=== PATIENT | female | born 1990 | race Caucasian/White ===

== ENCOUNTER → 2021-01-31 08:07 | Outpatient (BNVA) | payer SELFPAY | DX: Z76.89 Persons encountering health services in other specified circumstances (principal) ==

== ENCOUNTER → 2022-01-18 07:55 | Outpatient (BNVA) | payer SELFPAY | DX: Z02.83 Encounter for blood-alcohol and blood-drug test (principal) ==

== ENCOUNTER 2022-02-15 21:20 | Emergency (ER) | payer OTHER, SELFPAY ==
--- NOTE | ~2022-02-15 | CT_ITS ---
EXAMINATION: CT head/brain wo IV con CLINICAL INFORMATION: Reason for Exam headache COMPARISON: None. TECHNIQUE: Contiguous axial imaging was performed from the skull base to vertex without intravenous contrast. Sagittal and coronal reformatted images were obtained. This CT examination was performed using dose optimization techniques as appropriate, variously including the following: * Automated exposure control * Adjustment of mA and/or kV according to patient size (this includes techniques or standardized protocols for targeted exams where dose is matched to indication/reason for exam; i.e. extremities or head) Use of iterative reconstruction technique DLP: 729 mGy-cm FINDINGS: No acute osseous or soft tissue abnormality. The mastoid air cells and visualized portions of the paranasal sinuses are well aerated. There is no evidence of acute intracranial hemorrhage or territorial infarction. No abnormal mass effect or midline shift is seen. Rodriguez to white matter differentiation is well preserved. No extra-axial fluid collections are identified. No hydrocephalus. No significant volume loss. There is no abnormal attenuation within the brain parenchyma. CT/CT head/brain wo IV con IMPRESSION: No acute intracranial abnormality including hemorrhage, mass effect, hydrocephalus, or acute territorial edematous infarction.
[2022-02-15 22:25] VITALS: BP 121/73; PULSE 56; RESP 16; TEMP 36.6; O2SAT 100; BMI 28.1
--- NOTE | 2022-02-16 00:52 | ED.HA ---
HPI - Headache General Chief Complaint: General Medical Stated Complaint: ?migraine,neck pain,fever Time Seen by Provider: 02/16/22 00:46 Source: patient Mode of arrival: ambulatory Limitations: no limitations History of Present Illness MD elicited complaint: headache Pertinent past history: migraines Onset (ago): day(s) (3) Onset description: gradually and while at rest Location: right, temporal, occipital and band-like Severity: moderate Quality & Timing: throbbing, constant and progressively worsening Exacerbating factors: movement of head/neck, light and noise Relieving factors: nothing Context: occurred at rest Associated symptoms: nausea and photophobia Treatments prior to arrival: acetaminophen, ibuprofen and migraine medication Related Data Previous Rx's Medication Instructions Recorded bxclanqguv-yntfnoksxlrzc-xqjhqmbg 1 tab PO Q6H PRN pain #20 tabs 02/16/22 50 mg-325 mg-40 mg tablet cyclobenzaprine 10 mg tablet 10 mg PO TID PRN muscle spasm #14 02/16/22 tabs ondansetron 4 mg disintegrating 4 mg PO Q8H PRN nausea and 02/16/22 tablet vomiting #20 tabs Allergies Allergy/AdvReac Type Severity Reaction Status Date / Time birch [BIRCH] Allergy Intermediate UNKNOWN Verified 02/15/22 22:28 cat dander Allergy Intermediate RUNNY NOSE Verified 02/15/22 22:28 pollen extracts [POLLEN] Allergy Intermediate ITCHY EYES Verified 02/15/22 22:28 HORTENSIA TREE Allergy Intermediate UNKNOWN Uncoded 02/25/20 16:15 RAW FRUIT Allergy Intermediate UNKNOWN Uncoded 02/25/20 16:15 Review of Systems Review of Systems: Constitutional : No Fever, No Chills, No Fatigue ENT/Mouth : No sore throat, No Rhinorrhea Eyes: No Eye Pain, No Swelling, No Redness Cardiovascular : No Chest Pain, No SOB, No Dyspnea on Exertion Respiratory : No Cough, No Sputum Gastrointestinal : pos Nausea, No Vomiting, No Diarrhea, No abdominal Pain Genitourinary : No Dysuria, No Urinary Frequency, No Hematuria, Musculoskeletal : No joint pain, No Myalgias, No Joint Swelling, pos neck pain Skin : No Skin Lesions, No rash Neuro : No Weakness, No Numbness, No Dizziness, positive Headache Psych : No Anxiety/Panic, No Depression Heme/Lymph: No Bruising, No Bleeding,No Lymphadenopathy Endocrine : No Polyuria, No Polydipsia All other systems reviewed and are negative [facility] Past Medical History Attestation statement: The following information was validated with the patient. Medical History No pertinent past medical history Social History Social History (Updated 02/16/22 @ 00:55 by Taylor Ingram DO) Patient Tobacco Use Status: Never used Tobacco Advance Directives: No Advance Directives Information Provided: Yes Physical Exam Vital Signs: Vital Signs: Last Vital Signs Temp 97.8 F 02/15/22 22:25 Pulse 56 02/15/22 22:25 Resp 16 02/15/22 22:25 BP 121/73 02/15/22 22:25 Pulse Ox 100 02/15/22 22:25 O2 Del Method 02/15/22 22:25 BMI result Body Mass Index 28.1 Appearance: Alert. Oriented X3. No acute distress. Eyes: Pupils equal, round and reactive to light. ENT: Pharynx normal. normal TMs R side, bilateral maxillary and frontal sinus ttp Neck: Normal inspection. Neck supple. no meningeal signs CVS: Normal heart rate and rhythm. Pulses normal. Respiratory: No respiratory distress. Breath sounds normal. Abdomen: Soft and non-tender. Skin: Skin warm and dry. Normal skin color. Normal skin turgor. Extremities: No lower extremity edema. No calf ttp Neuro: Oriented X 3. No motor deficit. No sensory deficit. Course Course Course Narrative: feels better, stable for DC MDM - Headache MDM Narrative Medical decision making narrative: 31 yo female with no sig PMH here with c/o headache x 3 days with sinus pressure. At this time no fevers, not toxic, normal neuro exam will obtain CT head for sinusitis/mass. IV medications for migraine. Given onset, lack of fevers/no meningeal signs - doubt [employer] infection or SAH. Lab Data Result diagrams: 02/16/22 01:15 02/16/22 01:15 Labs: Lab Results 02/16/22 02/16/22 02/16/22 Range/Units 01:15 01:15 01:15 WBC 4.3 L (4.8-10.8) X10*3/uL RBC 4.04 L (4.20-5.50) X10*6/uL Hgb 12.3 (12.0-16.0) g/dl Hct 37.0 (37.0-47.0) % MCV 91.6 (80.0-98.0) fL MCH 30.4 (27.0-33.0) pg MCHC 33.2 (31.0-35.0) g/dl RDW 12.1 (11.0-16.0) % Plt Count 204 (160-400) X10*3/uL MPV 9.8 (9.4-12.3) fL Immature Gran % (Auto) 0.2 (0.0-0.4) % Neut % (Auto) 43.9 L (45-73) % Lymph % (Auto) 40.8 H (20-40) % [place] % (Auto) 9.8 (2-11) % Eos % (Auto) 4.4 H (0-4) % Baso % (Auto) 0.9 (0-2) % Lymph # (Auto) 1.8 (1.2-4.9) X10*3/uL [place] # (Auto) 0.4 (0.1-1.2) X10*3/uL Eos # (Auto) 0.2 (0.0-0.4) X10*3/uL Baso # (Auto) 0.0 (0.0-0.2) X10*3/uL Abs Immat Gran (auto) 0.01 (0.00-0.03) X10*3/uL Absolute Neuts (auto) 1.9 L (2.0-8.3) x10*3/uL Absolute Nucleated RBC 0.000 (0.0-0.012) X10*3/uL Nucleated RBC % (auto) 0.0 (0.0-0.2) /100WBC Sodium 139 (135-145) mmol/L Potassium 4.4 (3.3-5.1) mmol/L Chloride 105 (96-108) mmol/L Carbon Dioxide 25 (22-29) mmol/L Anion Gap 13 (12-20) BUN 18 H (9-16) mg/dL Creatinine 0.74 (0.5-1.4) mg/dL Estim Creat Clear Calc 118.8 Estimated GFR > 60 Random Glucose 82 (60-115) mg/dL Calcium 8.9 (8.4-10.2) mg/dL Beta HCG, Quant < 2 mIU/mL COVID-19 (DEBORAH) Negative (Negative) COVID-19 Clin Com See Note Discharge Plan Discharge Clinical Impression: Migraine Qualifiers: Migraine type: without aura Status migrainosus presence: without status migrainosus Intractability: not intractable Qualified Code(s): G43.009 - Migraine without aura, not intractable, without status migrainosus Patient Disposition: Home, Self-Care Instructions: Migraine Headache (ED) Additional Instructions: return to ED for any worsening symptoms or concerns COVID negative CT head negative CBC WBC 4.3 - repeat in 1 week with your primary care doctor Prescriptions: New cyclobenzaprine 10 mg tablet 10 mg PO TID PRN (Reason: muscle spasm) Qty: 14 0RF mewzuwiuhv-wqchglgmukezn-kyfs 50-325-40 mg tablet 1 tab PO Q6H PRN (Reason: pain) Qty: 20 0RF ondansetron 4 mg tablet,disintegrating 4 mg PO Q8H PRN (Reason: nausea and vomiting) Qty: 20 0RF Stand Alone Forms: Work/School Release
[2022-02-16 01:21] LABS: MANUAL DIFF FLAG NO
[2022-02-16] MEDS: diphenhydrAMINE HCL 50 MG/ML VIAL 25 MG IVPUSH (01:22)
[2022-02-16] MEDS: Metoclopramide HCl 10 MG/2 ML VIAL IVPUSH (01:22)
[2022-02-16] MEDS: Ketorolac Tromethamine 30 MG/ML VIAL IVPUSH (01:22)
[2022-02-16 01:23] LABS: Basophils Percent Auto 0.9 % (0-2); Eosinophils Absolute Auto 0.2 X10*3/uL (0.0-0.4); Eosinophils Percent Auto 4.4 % (0-4); Hemoglobin 12.3 g/dl (12.0-16.0); Imm Gran Abs Auto 0.01 X10*3/uL (0.00-0.03); Imm Gran Pct Auto 0.2 % (0.0-0.4); Lymphocytes Absolute Auto 1.8 X10*3/uL (1.2-4.9); Lymphocytes Percent Auto 40.8 % (20-40); Mean Corpuscular HGB Conc 33.2 g/dl (31.0-35.0); Mean Corpuscular Hemoglobin 30.4 pg (27.0-33.0); Mean Corpuscular Volume 91.6 fL (80.0-98.0); Mean Platelet Volume 9.8 fL (9.4-12.3); Monocytes Absolute Auto 0.4 X10*3/uL (0.1-1.2); Monocytes Percent Auto 9.8 % (2-11); Neutrophils Absolute Auto 1.9 x10*3/uL (2.0-8.3); Neutrophils Percent Auto 43.9 % (45-73); Platelet Count 204 X10*3/uL (160-400); Red Blood Count 4.04 X10*6/uL (4.20-5.50); Red Cell Distribution Width 12.1 % (11.0-16.0); White Blood Count 4.3 X10*3/uL (4.8-10.8)
[2022-02-16] MEDS: Famotidine/PF 20 MG/2 ML VIAL IVPUSH (01:23)
[2022-02-16] MEDS: 0.9 % Sodium Chloride 1,000 ML 999 ML IV (01:24)
[2022-02-16 01:42] LABS: COVID-19 Test Negative (Negative)
[2022-02-16 01:57] LABS: Anion Gap 13 (12-20); Blood Urea Nitrogen 18 mg/dL (9-16); Calcium 8.9 mg/dL (8.4-10.2); Carbon Dioxide 25 mmol/L (22-29); Chloride 105 mmol/L (96-108); Creatinine Clr Calc Pharmacy 118.8; Estimated Glomerular Filt Rate > 60; Glucose Random 82 mg/dL (60-115); Potassium 4.4 mmol/L (3.3-5.1); Sodium 139 mmol/L (135-145)
[2022-02-16 02:05] LABS: HCG Quantitative < 2 mIU/mL
[2022-02-16 04:10] VITALS: BP 102/59; PULSE 42; RESP 16
--- NOTE | 2022-02-16 04:11 | PC.NURSE ---
pt a&o, no sob or chest pain at this time. no sign of distress. Reviewed discharge instructions with pt. pt verbalized understanding. pt ambulated with a steady gait at discharge.
== END 2022-02-16 04:12 | disposition home or self-care (01) ==
PROVIDERS: Emergency Provider Emergency Medicine; PCP Nurse Practitioner Family
DX: G43.009 Migraine without aura, not intractable, without status migrainosus (principal); Z20.822 Contact with and (suspected) exposure to COVID-19; Z79.899 Other long term (current) drug therapy
CPT/HCPCS: 70450; 80048; 84702; 85025; 87635; 96374; 96375; 99284; J1200; J1885; J2765

== ENCOUNTER 2022-06-27 23:01 | Emergency (ER) | payer OTHER, SELFPAY ==
[2022-06-27 23:02] VITALS: BP 125/76; PULSE 50; RESP 18; TEMP 36.3; O2SAT 99; BMI 28.1
[2022-06-27 23:21] VITALS: BP 119/74; PULSE 48; RESP 16; TEMP 36.6; O2SAT 98
--- NOTE | 2022-06-27 23:23 | ED.HA ---
HPI - Headache General Chief Complaint: Headache Stated Complaint: migraine, cant keep food down Time Seen by Provider: 06/27/22 23:21 History of Present Illness HPI Narrative: Patient with history of migraine headache really get severe headaches last time was seen was 03/[address] scan of the head which was negative comes here for headache since yesterday with light sensitivity and nausea no fever chills no sinus infection Related Data Previous Rx's Medication Instructions Recorded psxaolincp-gsowwsfjvflcy-iframknc 1 tab PO Q6H PRN pain #20 tabs 02/16/22 50 mg-325 mg-40 mg tablet cyclobenzaprine 10 mg tablet 10 mg PO TID PRN muscle spasm #14 02/16/22 tabs ondansetron 4 mg disintegrating 4 mg PO Q8H PRN nausea and 02/16/22 tablet vomiting #20 tabs Allergies Allergy/AdvReac Type Severity Reaction Status Date / Time birch [BIRCH] Allergy Intermediate UNKNOWN Verified 02/15/22 22:28 cat dander Allergy Intermediate RUNNY NOSE Verified 02/15/22 22:28 pollen extracts [POLLEN] Allergy Intermediate ITCHY EYES Verified 02/15/22 22:28 HORTENSIA TREE Allergy Intermediate UNKNOWN Uncoded 02/25/20 16:15 RAW FRUIT Allergy Intermediate UNKNOWN Uncoded 02/25/20 16:15 Review of Systems Review of Systems: Yes all other systems are reviewed and are negative PMFSH Past Medical History Medical History (Updated 06/27/22 @ 23:35 by Antoinette Sheehan MD) Migraine Social History Social History Patient Tobacco Use Status: Never used Tobacco Smoked in Last 30 Days: Yes Use of substances other than those prescribed or required for medical reasons: No Patient : No Physical Exam Vital Signs: Vital Signs: Last Vital Signs Temp 97.9 F 06/27/22 23:21 Pulse 48 L 06/27/22 23:21 Resp 16 06/27/22 23:21 BP 119/74 06/27/22 23:21 Pulse Ox 98 06/27/22 23:21 O2 Del Method 06/27/22 23:21 BMI result Body Mass Index 28.1 Appearance: Alert. Oriented X3. No acute distress. Eyes: PERRLA, No Nystagmus photosensitive ENT: Pharynx normal. Oral Mucosa moist Neck: Normal inspection. Neck supple. CVS: Normal heart rate and rhythm. Pulses normal. Respiratory: No respiratory distress. Equal air entry bilateral, no wheezing/rales/rhonchi Abdomen: Soft and nontender. Bowel sounds are present, no mass palpable, no CVA tenderness Skin: Skin warm and dry. Normal skin color. Normal skin turgor. Extremities: No lower extremity edema. No calf tenderness Neuro: Oriented X 3. No motor deficit. No sensory deficit.No cerebellar signs , cranial nerves II-XII intact Discharge Plan Discharge Prescriptions: No Action cyclobenzaprine 10 mg tablet 10 mg PO TID PRN (Reason: muscle spasm) Qty: 14 0RF fxfkmeyquw-iswzdqupzlncn-odjh 50-325-40 mg tablet 1 tab PO Q6H PRN (Reason: pain) Qty: 20 0RF ondansetron 4 mg tablet,disintegrating 4 mg PO Q8H PRN (Reason: nausea and vomiting) Qty: 20 0RF
--- NOTE | 2022-06-27 23:32 | ED_ITS ---
HPI - Headache General Chief Complaint: Headache Stated Complaint: migraine, cant keep food down Time Seen by Provider: 06/27/22 23:21 Source: patient Mode of arrival: ambulatory Limitations: no limitations History of Present Illness HPI Narrative: Patient comes to the emergency room complaining of a migraine headache. Patient has been diagnosed with migraines in the past. Patient states that this morning she woke up with right-sided. Patient complaining of nausea vomiting, no diarrhea. Also patient reports that she has had a URI for several days. Patient tried several doses of Excedrin, ibuprofen and Tylenol without any significant relief. Patient complaining of photophobia. Patient denies any visual changes Related Data Previous Rx's Medication Instructions Recorded aucpgnreky-nratpkcwnibcf-clospddn 1 tab PO Q6H PRN pain #20 tabs 02/16/22 50 mg-325 mg-40 mg tablet cyclobenzaprine 10 mg tablet 10 mg PO TID PRN muscle spasm #14 02/16/22 tabs ondansetron 4 mg disintegrating 4 mg PO Q8H PRN nausea and 02/16/22 tablet vomiting #20 tabs qewdgjdffc-zexagdhdnouqo-yiplkbab 1 cap PO TID PRN pain #10 caps 06/28/22 50 mg-300 mg-40 mg capsule (Fioricet) metoclopramide HCl 5 mg tablet 5 mg PO TID PRN nausea and 06/28/22 (Reglan) vomiting #10 tabs Allergies Allergy/AdvReac Type Severity Reaction Status Date / Time birch [BIRCH] Allergy Intermediate UNKNOWN Verified 02/15/22 22:28 cat dander Allergy Intermediate RUNNY NOSE Verified 02/15/22 22:28 pollen extracts [POLLEN] Allergy Intermediate ITCHY EYES Verified 02/15/22 22:28 HORTENSIA TREE Allergy Intermediate UNKNOWN Uncoded 02/25/20 16:15 RAW FRUIT Allergy Intermediate UNKNOWN Uncoded 02/25/20 16:15 Review of Systems Review of Systems: Constitutional : No Weight loss, No Fever, No Chills, No Night Sweats, No Fatigue, No Malaise ENT/Mouth : No Hearing loss, No Ear Pain, No Nasal Congestion, No Sinus Pain, No Hoarseness, No sore throat, No Rhinorrhea, No Swallowing Difficulty Eyes: Complaining of photophobia, No Eye Pain, No Swelling, No Redness, No Foreign Body, No Discharge, No Vision Changes Cardiovascular : No Chest Pain, No SOB, No Dyspnea on Exertion, No Orthopnea, No Edema, No Palpitations Respiratory : No Cough, No Sputum, No Wheezing, No Smoke Exposure, No Dyspnea Gastrointestinal : Complaining of nausea vomiting, No Diarrhea, No Constipation, No abdominal Pain, No Hematochezia, No Melena Genitourinary : no irregular bleeding, No Dysuria, No Urinary Frequency, No Hematuria, No Urinary Incontinence, No Urgency, No Flank Pain, No Urinary Flow Changes, No Hesitancy Musculoskeletal : No joint pain, No Myalgias, No Joint Swelling Skin : No Skin Lesions, No rash Neuro : No Weakness, No Numbness, No Paresthesias, No Loss of Consciousness, No Dizziness, complaining of a migraine headache Psych : No Anxiety/Panic, No Depression, No SI/HI/AH/VH, No Social Issues, Heme/Lymph: No Bruising, No Bleeding,No Lymphadenopathy Endocrine : No Polyuria, No Polydipsia, No Temperature Intolerance PMFSH Past Medical History Medical History (Updated 06/28/22 @ 01:38 by Antoinette Sheehan MD) Migraine Social History Social History Patient Tobacco Use Status: Never used Tobacco Smoked in Last 30 Days: Yes Use of substances other than those prescribed or required for medical reasons: No Advance Directives: No Advance Directives Information Provided: Yes Patient : No Physical Exam Vital Signs: Vital Signs: Last Vital Signs Temp 97.7 F 06/28/22 00:00 Pulse 40 L 06/28/22 00:00 Resp 16 06/28/22 00:00 BP 119/74 06/27/22 23:21 Pulse Ox 99 06/28/22 00:00 O2 Del Method 06/28/22 00:00 BMI result Body Mass Index 28.1 Const: Other: Appearance: Alert. Oriented X3. No acute distress. Eyes: Pupils equal, round and reactive to light. Patient has photophobia ENT: Pharynx normal. Neck: Normal inspection. Neck supple. No lymph nodes noted. No crepitus CVS: Normal heart rate and rhythm. Pulses normal. Normal S1 and S2 Respiratory: No respiratory distress. Breath sounds normal. No Wheezing. No rales Abdomen: Soft and nontender. No rigidity. No distention. Skin: Skin warm and dry. Normal skin color. Normal skin turgor. Extremities: No lower extremity edema. No Lacerations. No Rash Neuro: Oriented X 3. No motor deficit. No sensory deficit. Moving all extremities. No slurred speech. CN 2 through 12 grossly intact Psych: calm, cooperative, normal affect Course Course Course Narrative: -patient receiving IV fluids, Benadryl IV, Toradol and Reglan. -Serology tests pending Medications Administered Discontinued Medications Generic Name Dose Route Start Last Admin Trade Name Tee PRN Reason Stop Dose Admin Diphenhydramine HCl 50 mg 06/27/22 23:25 06/27/22 23:46 Diphenhydramine Hcl 50 Mg/Ml Vial IVPUSH 06/27/22 23:26 50 mg ONCE ONE Administration Sodium Chloride 1,000 mls @ 999 mls/hr 06/27/22 23:25 06/27/22 23:46 Ns IVCONT 06/28/22 00:25 999 mls/hr .Q1H1M ONE Administration Ketorolac Tromethamine 30 mg 06/27/22 23:25 06/27/22 23:46 Ketorolac Tromethamine 30 Mg/Ml Vial IVPUSH 06/27/22 23:26 30 mg ONCE ONE Administration Metoclopramide HCl 10 mg 06/27/22 23:25 06/27/22 23:47 Metoclopramide Hcl 10 Mg/2 Ml Vial IVPUSH 06/27/22 23:26 10 mg ONCE ONE Administration Medical Decision Making Medical Decision Making [facility] Narrative: -patient feeling much better after the cocktail, states that she has residual headache but feels much better, no longer nauseous or having photophobia. Patient feels well to go home. -discussed with the patient she tested positive for RSV, patient has no difficulty breathing, oxygen saturation 99% on room air. Discussed with the patient to use caution and masks especially around younger kids and elderly people Differential Diagnosis Differential Diagnoses: The differential diagnosis associated with the presentation includes (Tension headache migraine headache, RSV, influenza, viral syndrome) Lab Data [facility] Lab Attestation statement: I reviewed the patient's lab results. Labs: Lab Results 06/27/22 06/27/22 Range/Units 23:11 23:11 Influenza Type A (PCR) NEGATIVE (Negative) Influenza Type B (PCR) NEGATIVE (Negative) RSV RNA Qual (PCR) POSITIVE A (Negative) SARS-CoV-2 RNA (RT-PCR) NEGATIVE (Negative) S. pyogenes GrpA EVONNE Negative (Negative) Discharge Plan Discharge Clinical Impression: Migraine, Bronchiolitis Patient Disposition: Home, Self-Care Instructions: Respiratory Syncytial Virus (ED), Migraine Headache (ED) Additional Instructions: Please follow-up with your primary care physician tomorrow. If you have any worsening or new symptoms, please return to the emergency room or call 911 Prescriptions: New cppmirrgne-eqpixllmmviwn-lbwk [Fioricet] 50-300-40 mg capsule 1 cap PO TID PRN (Reason: pain) Qty: 10 0RF metoclopramide HCl [Reglan] 5 mg tablet 5 mg PO TID PRN (Reason: nausea and vomiting) Qty: 10 0RF Rx Instructions: Take together with Fioricet p.r.n. migraine headaches No Action cyclobenzaprine 10 mg tablet 10 mg PO TID PRN (Reason: muscle spasm) Qty: 14 0RF bfuzypnfcx-rnytwraonvdyj-wldv 50-325-40 mg tablet 1 tab PO Q6H PRN (Reason: pain) Qty: 20 0RF ondansetron 4 mg tablet,disintegrating 4 mg PO Q8H PRN (Reason: nausea and vomiting) Qty: 20 0RF
[2022-06-27 23:36] LABS: IDNOW Serial# 6674DD1D; Strep A Nucleic Acid Negative (Negative)
[2022-06-27] MEDS: Ketorolac Tromethamine 30 MG/ML VIAL IVPUSH (23:46)
[2022-06-27] MEDS: diphenhydrAMINE HCL 50 MG/ML VIAL IVPUSH (23:46)
[2022-06-27] MEDS: 0.9 % Sodium Chloride 1,000 ML 999 ML IVCONT (23:46)
[2022-06-27] MEDS: Metoclopramide HCl 10 MG/2 ML VIAL IVPUSH (23:47)
[2022-06-27 23:58] LABS: Influenza A PCR NEGATIVE (Negative); Influenza B PCR NEGATIVE (Negative); Resp Syncy Virus RNA Qual PCR POSITIVE (Negative); SARS COV2 PCR INHOUSE NEGATIVE (Negative)
[2022-06-28] VITALS: PULSE 40; RESP 16; TEMP 36.5; O2SAT 99
== END 2022-06-28 01:57 | disposition home or self-care (01) ==
PROVIDERS: Emergency Provider Emergency Medicine; PCP Nurse Practitioner Family
DX: G43.909 Migraine, unspecified, not intractable, without status migrainosus (principal); J21.9 Acute bronchiolitis, unspecified; Z20.822 Contact with and (suspected) exposure to COVID-19; Z20.828 Contact with and (suspected) exposure to other viral communicable diseases
CPT/HCPCS: 0241U; 87651; 96374; 96375; 99284; 99285; J1200; J1885; J2765

== ENCOUNTER 2023-12-22 05:02 | Emergency (ER) | payer OTHER, SELFPAY ==
[2023-12-22 05:07] VITALS: BP 116/66; PULSE 66; RESP 16; TEMP 36.6; O2SAT 100; BMI 29.8
--- NOTE | 2023-12-22 05:20 | ED_ITS ---
HPI - Allergic Reaction General Chief complaint: Allergic Reaction Stated complaint: hives, possible allergic reaction Time Seen by Provider: 12/22/23 05:16 Source: patient Mode of arrival: ambulatory Limitations: no limitations History of Present Illness ED Provider: Dr. Antoinette Sheehan HPI narrative: Patient comes to the emergency room complaining of an allergic reaction. Patient states that yesterday morning, almost 24 hours ago she was peeling potatoes. Shortly after, patient started feeling itchy around her body and developing hives. Patient took Benadryl 50 mg without any relief. Patient states that throughout the last 24 hours, patient has taken multiple doses of Benadryl without any relief. Patient denies any foreign body sensation in the throat, states she feels a bit short of breath but not wheezing. Denies nausea vomiting diarrhea. Patient states that the hives are now getting worse around her eyes, her eyes are becoming swollen, and she is itching throughout. Patient states that she believes she is allergic to raw fruits and vegetables Related Data Previous Rx's ?Medication ?Instructions ?Recorded dzeetyghpf-tmtpawpvhwxmk-tmdmoxgo 1 tab PO Q6H PRN pain #20 tabs 02/16/22 50 mg-325 mg-40 mg tablet cyclobenzaprine 10 mg tablet 10 mg PO TID PRN muscle spasm #14 02/16/22 tabs ondansetron 4 mg disintegrating 4 mg PO Q8H PRN nausea and 02/16/22 tablet vomiting #20 tabs wcqjeidwex-ddrytawyctsyl-sqpnyqpq 1 cap PO TID PRN pain #10 caps 06/28/22 50 mg-300 mg-40 mg capsule (Fioricet) metoclopramide HCl 5 mg tablet 5 mg PO TID PRN nausea and 06/28/22 (Reglan) vomiting #10 tabs epinephrine 0.3 mg/0.3 mL 0.3 mg (0.3 mL) IM Q4H PRN 12/22/23 injection, auto-injector (EpiPen) hypersensitivity reaction #2 ea Allergies Allergy/AdvReac Type Severity Reaction Status Date / Time birch [BIRCH] Allergy Intermediate UNKNOWN Verified 02/15/22 22:28 cat dander Allergy Intermediate RUNNY NOSE Verified 02/15/22 22:28 pollen extracts [POLLEN] Allergy Intermediate ITCHY EYES Verified 02/15/22 22:28 Penicillins Allergy Hives Verified 12/22/23 05:13 HORTENSIA TREE Allergy Intermediate UNKNOWN Uncoded 02/25/20 16:15 RAW FRUIT Allergy Intermediate UNKNOWN Uncoded 02/25/20 16:15 Review of Systems Review of Systems: Constitutional : No Weight loss, No Fever, No Chills, No Night Sweats, No Fatigue, No Malaise ENT/Mouth : No Hearing loss, No Ear Pain, No Nasal Congestion, No Sinus Pain, No Hoarseness, No sore throat, No Rhinorrhea, No Swallowing Difficulty Eyes: No Eye Pain, No Swelling, No Redness, No Foreign Body, No Discharge, No Vision Changes Cardiovascular : No Chest Pain, No SOB, No Dyspnea on Exertion, No Orthopnea, No Edema, No Palpitations Respiratory : No Cough, No Sputum, No Wheezing, No Smoke Exposure, No Dyspnea Gastrointestinal : No Nausea, No Vomiting, No Diarrhea, No Constipation, No abdominal Pain, No Hematochezia, No Melena Genitourinary : no irregular bleeding, No Dysuria, No Urinary Frequency, No Hematuria, No Urinary Incontinence, No Urgency, No Flank Pain, No Urinary Flow Changes, No Hesitancy Musculoskeletal : No joint pain, No Myalgias, No Joint Swelling Skin : Diffuse hives and itchiness Neuro : No Weakness, No Numbness, No Paresthesias, No Loss of Consciousness, No Dizziness, No Headache Psych : No Anxiety/Panic, No Depression, No SI/HI/AH/VH, No Social Issues, Heme/Lymph: No Bruising, No Bleeding,No Lymphadenopathy Endocrine : No Polyuria, No Polydipsia, No Temperature Intolerance PMFSH Past Medical History Medical History Migraine Social History Social History Alcohol intake: current Alcohol intake frequency: holidays/special occasions only Patient Tobacco Use Status: Never used Tobacco Smoked in Last 30 Days: No Use of substances other than those prescribed or required for medical reasons: No Advance Directives: No Advance Directives Information Provided: No Do you have a plan to hurt others: No Plan Patient : No Physical Exam ED Vital Signs: Vital Signs - 24 hr 12/22/23 05:07 12/22/23 05:50 Temperature 97.8 F 98.2 F Pulse Rate 66 50 Respiratory Rate 16 16 Blood Pressure 116/66 105/59 L Pulse Oximetry 100 100 Oxygen Delivery Method Room Air Room Air BMI result Body Mass Index 29.8 Const Other: Appearance: Alert. Oriented X3. No acute distress. Eyes: Pupils equal, round and reactive to light. ENT: Pharynx normal. No angioedema Neck: Normal inspection. Neck supple. No lymph nodes noted. No crepitus CVS: Normal heart rate and rhythm. Pulses normal. Normal S1 and S2 Respiratory: No respiratory distress. Breath sounds normal. No Wheezing. No rales Abdomen: Soft and nontender. No rigidity. No distention. Skin: Skin warm and dry. Normal skin color. Normal skin turgor. Diffuse hives head to toe Extremities: No lower extremity edema. No Lacerations. No Rash Neuro: Oriented X 3. No motor deficit. No sensory deficit. Moving all extremities. No slurred speech. CN 2 through 12 grossly intact Psych: calm, cooperative, normal affect Course Course Course Narrative: Patient receiving IV fluids, diphenhydramine famotidine and methylprednisolone -vitals are stable Medications Administered Discontinued Medications Generic Name Dose Route Start Last Admin Trade Name Freq PRN Reason Stop Dose Admin Diphenhydramine HCl 50 mg 12/22/23 05:19 12/22/23 05:46 Diphenhydramine Hcl 50 Mg/Ml Vial IVPUSH 12/22/23 05:20 50 mg ONCE ONE Administration Famotidine 20 mg 12/22/23 05:19 12/22/23 05:46 Famotidine/Pf 20 Mg/2 Ml Vial IVPUSH 12/22/23 05:20 20 mg ONCE ONE Administration Sodium Chloride 1,000 mls @ 999 mls/hr 12/22/23 05:19 12/22/23 05:46 Ns IVCONT 12/22/23 06:19 999 mls/hr .Q1H1M ONE Administration Methylprednisolone Sodium Succinate 125 mg 12/22/23 05:19 12/22/23 05:46 Methylprednisolone Sod Succ 125 Mg/2 Ml Vial IVPUSH 12/22/23 05:20 125 mg ONCE ONE Administration Medical Decision Making Medical Decision Making [facility] Narrative: -after the above-mentioned medication, patient feeling much better, patient states that she still has a little bit of itching but is mostly resolved. -patient will be getting a 2nd dose of Solu-Medrol. -patient instructed to follow-up with her primary care physician. Patient may need a referral to immunology for a skin scratched test And give signed out to my colleague ESTEPHANIA Patel, once patient's symptoms improved, she may be discharged. An Differential Diagnosis Differential Diagnoses: The differential diagnosis associated with the presentation includes (Allergic reaction, anaphylaxis) Admission/Observation Consideration of admission/observation: Escalation of care including admission/observation considered (Given patient's presentation and duration of symptoms, observation considered) Critical Care Time Critical Care Time Critical Care Time: Yes Total Critical Care Time: 60 Attestation: I have personally provided critical care time. Time includes review of lab data, radiology results, discussion with consultants, and monitoring for potential decompensation. Intervention performed as documented. Discharge Plan Discharge Clinical Impression: Allergic reaction Patient Disposition: Home, Self-Care Instructions: General Allergic Reaction (ED) Additional Instructions: Please follow-up with your primary care physician tomorrow. If you have any worsening or new symptoms, please return to the emergency room or call 911. A prescription for an EpiPen was sent to your pharmacy. Please ask your pharmacy to show how to use it. Please do not wait for an emergency to try to figure out how to use it. Epinephrine is meant to be used in severe allergic reactions such as your throat closing. Rash/hives is not an indication to use an EpiPen. If you ever use your EpiPen, you need to come to the emergency room for evaluation Prescriptions: New epinephrine [EpiPen] 0.3 mg/0.3 mL auto-injector 0.3 mg IM Q4H PRN (Reason: hypersensitivity reaction) Qty: 2 0RF No Action maytbprtuq-xkbpfjhseivbu-gwwo [Fioricet] 50-300-40 mg capsule 1 cap PO TID PRN (Reason: pain) Qty: 10 0RF metoclopramide HCl [Reglan] 5 mg tablet 5 mg PO TID PRN (Reason: nausea and vomiting) Qty: 10 0RF Rx Instructions: Take together with Fioricet p.r.n. migraine headaches cyclobenzaprine 10 mg tablet 10 mg PO TID PRN (Reason: muscle spasm) Qty: 14 0RF iitqxnoetb-boaotiktcuugp-ojoi 50-325-40 mg tablet 1 tab PO Q6H PRN (Reason: pain) Qty: 20 0RF ondansetron 4 mg tablet,disintegrating 4 mg PO Q8H PRN (Reason: nausea and vomiting) Qty: 20 0RF Print Language: St Helen[place]
[2023-12-22] MEDS: 0.9 % Sodium Chloride 1,000 ML 999 ML IVCONT (05:46)
[2023-12-22] MEDS: methylPREDNISolone Sod Succ 125 MG/2 ML VIAL IVPUSH ×2 (05:46→07:00)
[2023-12-22] MEDS: Famotidine/PF 20 MG/2 ML VIAL IVPUSH (05:46)
[2023-12-22] MEDS: diphenhydrAMINE HCL 50 MG/ML VIAL IVPUSH (05:46)
[2023-12-22 05:50] VITALS: BP 105/59; PULSE 50; RESP 16; TEMP 36.8; O2SAT 100
--- NOTE | 2023-12-22 07:11 | PC.NURSE ---
Resumed care of pt at 0700. Solumedrol administered per AUG, pt a/ox4, respirations even and unlabored, lung sounds cta bilaterally, s1 and s2 heard, abdomen soft and non-tender, call sadler within reach, pt aware of ongoing plan.
[2023-12-22 07:43] VITALS: BP 111/70; PULSE 68; RESP 18; TEMP 36.6; O2SAT 98
== END 2023-12-22 07:44 | disposition home or self-care (01) ==
PROVIDERS: Emergency Provider Emergency Medicine; PCP Nurse Practitioner Family
DX: L50.0 Allergic urticaria (principal); R11.2 Nausea with vomiting, unspecified; Z79.899 Other long term (current) drug therapy
CPT/HCPCS: 96360; 96374; 96375; 96376; 99284; J1200; J2919

== ENCOUNTER 2024-01-18 12:24 | Emergency (ER) | payer OTHER, SELFPAY ==
--- NOTE | 2024-01-18 12:24 | ED.GENADULT ---
HPI - General Adult General Chief complaint: Allergic Reaction Stated complaint: Allergic reaction Time Seen by Provider: 01/18/24 12:40 Source: patient Mode of arrival: ambulatory Limitations: no limitations History of Present Illness HPI narrative: Patient is a 33-year-old female who presents emergency department with concern for persistent allergic reaction. She reports approximately 1 month ago she was seen in the emergency department for an allergic reaction after peeling potatoes. She believes that she is allergic to raw fruits and vegetables. She was treated with IV medications and discharged home with a prescription for an EpiPen. She states that a couple of weeks ago she consumes some [place] fries, she thought this would not be problematic as they were fried, however she developed arm swelling to her mouth, a throat closing sensation in itching to the front of her neck for which she gave herself her EpiPen and her symptoms began improving. She did not seek evaluation after use of her EpiPen initially. She states that 3 days ago she was at home when someone brought a bag of potato chips into the home and opens them, she reports that her eyes began to swell and she again had a throat closing sensation, states it was not as bad as the reaction when she consumed the [place] fries however she did administer her EpiPen and noticed some improvement in her symptoms. Since then she continues to get swelling of her eyes, itching sensation to the front of her neck for which she has been taking Benadryl and Zyrtec. It does improve her symptoms but they then return. She only just yesterday sent a message to her primary care doctor through the portal to request a referral to an process improvement manager. She denies any other known new allergies or potential environmental contacts. Related Data Previous Rx's ?Medication ?Instructions ?Recorded luexlxljue-wkwclzqjeppfg-fkxqbujx 1 tab PO Q6H PRN pain #20 tabs 02/16/22 50 mg-325 mg-40 mg tablet cyclobenzaprine 10 mg tablet 10 mg PO TID PRN muscle spasm #14 02/16/22 tabs ondansetron 4 mg disintegrating 4 mg PO Q8H PRN nausea and 02/16/22 tablet vomiting #20 tabs jjdwansqwq-bhworbimhdqmp-qyebfnyk 1 cap PO TID PRN pain #10 caps 06/28/22 50 mg-300 mg-40 mg capsule (Fioricet) metoclopramide HCl 5 mg tablet 5 mg PO TID PRN nausea and 06/28/22 (Reglan) vomiting #10 tabs epinephrine 0.3 mg/0.3 mL 0.3 mg (0.3 mL) IM Q4H PRN 12/22/23 injection, auto-injector (EpiPen) hypersensitivity reaction #2 ea epinephrine 0.3 mg/0.3 mL 0.3 mg (0.3 mL) IM Q4H PRN 01/18/24 injection, auto-injector (EpiPen anaphylaxis #2 ea 2-Melvin) Allergies Allergy/AdvReac Type Severity Reaction Status Date / Time birch [BIRCH] Allergy Intermediate UNKNOWN Verified 01/18/24 12:30 cat dander Allergy Intermediate RUNNY NOSE Verified 01/18/24 12:30 pollen extracts [POLLEN] Allergy Intermediate ITCHY EYES Verified 01/18/24 12:30 Penicillins Allergy Hives Verified 01/18/24 12:30 potato Allergy Facial Verified 01/18/24 12:30 Swelling HORTENSIA TREE Allergy Intermediate UNKNOWN Uncoded 02/25/20 16:15 RAW FRUIT Allergy Intermediate UNKNOWN Uncoded 02/25/20 16:15 Review of Systems Review of Systems: Yes all other systems are reviewed and are negative [facility] Past Medical History Attestation statement: The following information was validated with the patient. Source: old records reviewed Medical History Migraine Social History Social History Alcohol intake: current Alcohol intake frequency: holidays/special occasions only Patient Tobacco Use Status: Never used Tobacco Advance Directives: No Advance Directives Information Provided: No Physical Exam ED Vital Signs: Vital Signs - 24 hr 01/18/24 12:25 01/18/24 13:14 Temperature 96.8 F 96.8 F Pulse Rate 65 65 Respiratory Rate 16 16 Blood Pressure 105/72 105/72 Pulse Oximetry 98 98 Oxygen Delivery Method Room Air Room Air BMI result Body Mass Index 29.8 Appearance: Alert.?Oriented to person, place and time. No acute distress.?Normal affect. Eyes: Pupils equal, round and reactive to light.? No periorbital edema. EOMI. ENT: Pharynx normal.??No erythema. No angioedema. Neck: Normal inspection.? Neck supple.? No cervical adenopathy. Skin to the anterior neck is erythematous but without obvious urticaria, superficial linear abrasions consistent with scratch lugo ? CVS: Heart sounds normal. Normal heart rate and rhythm.? Pulses normal.?? Respiratory: No respiratory distress.? Lung sounds clear to auscultation bilaterally?? Abdomen: Soft and non-tender. Normoactive bowel sounds. Skin: Skin warm and dry.? Normal skin color.? ?? Extremities: No lower extremity edema.? Neuro: Moves all extremities spontaneously. Sensation intact bilaterally. Ambulates with normal steady gait. Course Course Course Narrative: This is a rapid medical exam performed by Homer Jones NP: Additional HPI, ROS, PE not included below will be deferred to primary provider. Patient is a 33-year-old female presenting to the emergency department with complaint of recently diagnosed potato allergy. Has used Epi-pen twice this week. Denies shortness of breath but reports hives and dry skin, eye swelling. Lungs CTU, no angioedema, no uvula edema. Reports hives but none visible in triage. Has been taking Benadryl. Has not seen an process improvement manager, prescribed Epi-Pen by PCP. Medical Decision Making Medical Decision Making MDM Narrative: Patient is a 33-year-old female who presents to the emergency department with expressed concern for continued allergic reaction as per HPI. Her most recent reactions have occurred after exposure to some form of potato though not raw this time around they were fried/baked. Currently she appears well. She is nontoxic. She has no respiratory distress. No urticaria. No periorbital edema. No signs of angioedema. No wheezing. She has been taking ddev-vty-ouismfk antihistamines. As noted in her HPI she has been using her EpiPen, it is unclear when she develops his throat closing sensation whether there is true angioedema, however I did express the importance that after any use of the EpiPen she should seek evaluation in the emergency department and she verbalized understanding of this. We discussed establishing care with an process improvement manager, and seeking referral from her primary care doctor. At this time I do not see indication that she needs additional treatment with intravenous antihistamines or steroids at this time. She is well-appearing and stable for discharge. Differential Diagnosis Differential Diagnoses: The differential diagnosis associated with the presentation includes (See narrative above) External Record Review External record reviewed: Outpatient record Chronic Conditions Patient?s care impacted by: Other (See narrative above) Discharge Plan Discharge Clinical Impression: Pruritus Patient Disposition: Home, Self-Care Instructions: Epinephrine (By injection), Allergy Antigen (By injection), Allergies (ED), Itchy Skin (ED), Allergy Testing (ED) Additional Instructions: As discussed, please stay the course with your current treatment using Benadryl and nonsedating jpvs-etj-jzdmwlj allergy medications such as Zyrtec, and Claritin to manage your symptoms. Try to avoid any environmental exposures that have resulted in your allergy presentation. As discussed, an EpiPen should be used in the case of emergency with inability to breathe, notable throat closing sensation, swelling of the mouth and lips/face. In addition after use it is important that you present to an emergency department for evaluation and monitoring. Please contact your primary care doctor for assistance in establishing care with an process improvement manager. As we discussed, you may additionally contact process improvement manager offices that are in network with your insurance to inquire with the anticipated wait time would be for new patient appointment and discuss your option of choice with your primary care doctor. You may return back to emergency department with any new or worsening symptoms or concerns. Prescriptions: New epinephrine [EpiPen 2-Melvin] 0.3 mg/0.3 mL auto-injector 0.3 mg IM Q4H PRN (Reason: anaphylaxis) Qty: 2 0RF No Action ytqwupcgbq-jpslxmaueteny-ewft [Fioricet] 50-300-40 mg capsule 1 cap PO TID PRN (Reason: pain) Qty: 10 0RF metoclopramide HCl [Reglan] 5 mg tablet 5 mg PO TID PRN (Reason: nausea and vomiting) Qty: 10 0RF Rx Instructions: Take together with Fioricet p.r.n. migraine headaches cyclobenzaprine 10 mg tablet 10 mg PO TID PRN (Reason: muscle spasm) Qty: 14 0RF ccmcumrmmo-ngocknywqneay-helb 50-325-40 mg tablet 1 tab PO Q6H PRN (Reason: pain) Qty: 20 0RF ondansetron 4 mg tablet,disintegrating 4 mg PO Q8H PRN (Reason: nausea and vomiting) Qty: 20 0RF epinephrine [EpiPen] 0.3 mg/0.3 mL auto-injector 0.3 mg IM Q4H PRN (Reason: hypersensitivity reaction) Qty: 2 0RF Referrals: Neetu Akhtar [employer] [Primary Care Provider] - Interventions: ED Discharge Assessment Last Done: 01/18/24 13:14 Discharge Date/Time: 01/18/24 13:14 Print Language: Lao
[2024-01-18 12:25] VITALS: BP 105/72; PULSE 65; RESP 16; TEMP 36; O2SAT 98; BMI 29.8
[2024-01-18 13:14] VITALS: BP 105/72; PULSE 65; RESP 16; TEMP 36; O2SAT 98
== END 2024-01-18 13:14 | disposition home or self-care (01) ==
PROVIDERS: Emergency Provider Emergency Medicine; PCP Nurse Practitioner Family
DX: L29.9 Pruritus, unspecified (principal)
CPT/HCPCS: 99282; 99283

== ENCOUNTER 2024-03-29 18:29 | Emergency (ER) | payer OTHER, SELFPAY ==
[2024-03-29 18:45] VITALS: BP 105/53; PULSE 54; RESP 16; TEMP 36.8; O2SAT 99; BMI 26.9
--- NOTE | 2024-03-29 18:48 | ED.HA ---
HPI - Headache General Chief Complaint: Headache Stated Complaint: Migraine X3days Time Seen by Provider: 03/29/24 20:57 Source: patient Mode of arrival: ambulatory Limitations: no limitations History of Present Illness ED Provider: Dr. Antoinette Sheehan HPI Narrative: patient comes to the emergency room complaining of a migraine headache that started 2 days ago. Patient has tried multiple doses of Tylenol, Motrin, Excedrin and 2 doses of sumatriptan without any relief. Patient complaining of photophobia nausea. Patient had 1 episode of diarrhea after taking sumatriptan. Related Data Previous Rx's ?Medication ?Instructions ?Recorded apbdqpewel-mygcqrvrjkvpe-xaldrsog 1 tab PO Q6H PRN pain #20 tabs 02/16/22 50 mg-325 mg-40 mg tablet cyclobenzaprine 10 mg tablet 10 mg PO TID PRN muscle spasm #14 02/16/22 tabs ondansetron 4 mg disintegrating 4 mg PO Q8H PRN nausea and 02/16/22 tablet vomiting #20 tabs nypmxwpmde-zfftksjdwdnvi-eetmiewk 1 cap PO TID PRN pain #10 caps 06/28/22 50 mg-300 mg-40 mg capsule (Fioricet) metoclopramide HCl 5 mg tablet 5 mg PO TID PRN nausea and 06/28/22 (Reglan) vomiting #10 tabs epinephrine 0.3 mg/0.3 mL 0.3 mg (0.3 mL) IM Q4H PRN 12/22/23 injection, auto-injector (EpiPen) hypersensitivity reaction #2 ea epinephrine 0.3 mg/0.3 mL 0.3 mg (0.3 mL) IM Q4H PRN 01/18/24 injection, auto-injector (EpiPen anaphylaxis #2 ea 2-Melvin) ketorolac 10 mg tablet 10 mg PO Q8H PRN pain #10 tabs 03/30/24 metoclopramide HCl 5 mg tablet 5 mg PO . t.i.d. PRN nausea and 03/30/24 (Reglan) vomiting #10 tabs Allergies Allergy/AdvReac Type Severity Reaction Status Date / Time birch [BIRCH] Allergy Intermediate UNKNOWN Verified 03/29/24 18:47 cat dander Allergy Intermediate RUNNY NOSE Verified 03/29/24 18:47 pollen extracts [POLLEN] Allergy Intermediate ITCHY EYES Verified 03/29/24 18:47 Penicillins Allergy Hives Verified 03/29/24 18:47 potato Allergy Facial Verified 03/29/24 18:47 Swelling HORTENSIA TREE Allergy Intermediate UNKNOWN Uncoded 02/25/20 16:15 RAW FRUIT Allergy Intermediate UNKNOWN Uncoded 02/25/20 16:15 Review of Systems Review of Systems: Constitutional : No Weight loss, No Fever, No Chills, No Night Sweats, No Fatigue, No Malaise ENT/Mouth : No Hearing loss, No Ear Pain, No Nasal Congestion, No Sinus Pain, No Hoarseness, No sore throat, No Rhinorrhea, No Swallowing Difficulty Eyes: Complaining of photophobia,No Eye Pain, No Swelling, No Redness, No Foreign Body, No Discharge, No Vision Changes Cardiovascular : No Chest Pain, No SOB, No Dyspnea on Exertion, No Orthopnea, No Edema, No Palpitations Respiratory : No Cough, No Sputum, No Wheezing, No Smoke Exposure, No Dyspnea Gastrointestinal : No Nausea, No Vomiting, No Diarrhea, No Constipation, No abdominal Pain, No Hematochezia, No Melena Genitourinary : no irregular bleeding, No Dysuria, No Urinary Frequency, No Hematuria, No Urinary Incontinence, No Urgency, No Flank Pain, No Urinary Flow Changes, No Hesitancy Musculoskeletal : No joint pain, No Myalgias, No Joint Swelling Skin : No Skin Lesions, No rash Neuro : No Weakness, No Numbness, No Paresthesias, No Loss of Consciousness, No Dizziness, complaining of a migraine headache Psych : No Anxiety/Panic, No Depression, No SI/HI/AH/VH, No Social Issues, Heme/Lymph: No Bruising, No Bleeding,No Lymphadenopathy Endocrine : No Polyuria, No Polydipsia, No Temperature Intolerance [facility] Past Medical History Medical History Migraine Social History Social History Alcohol intake: current Alcohol intake frequency: holidays/special occasions only Patient Tobacco Use Status: Never used Tobacco Smoked in Last 30 Days: No Use of substances other than those prescribed or required for medical reasons: No Advance Directives: No Advance Directives Information Provided: Yes Patient : No Physical Exam Vital Signs: Vital Signs: Last Vital Signs Temp 97.9 F 03/29/24 22:37 Pulse 44 L 03/29/24 22:37 Resp 10 L 03/29/24 22:37 BP 107/69 03/29/24 22:37 Pulse Ox 99 03/29/24 22:37 O2 Del Method Room Air 03/29/24 22:37 BMI result Body Mass Index 26.9 Const: Other: Appearance: Alert. Oriented X3. looks uncomfortable. Eyes: Pupilse equal, round and reactive to light. patient has photophobia ENT: Pharynx normal. Neck: Normal inspection. Neck supple. No lymph nodes noted. No crepitus CVS: Normal heart rate and rhythm. Pulses normal. Normal S1 and S2 Respiratory: No respiratory distress. Breath sounds normal. No Wheezing. No rales Abdomen: Soft and nontender. No rigidity. No distention. Skin: Skin warm and dry. Normal skin color. Normal skin turgor. Extremities: No lower extremity edema. No Lacerations. No Rash Neuro: Oriented X 3. No motor deficit. No sensory deficit. Moving all extremities. No slurred speech. CN 2 through 12 grossly intact Psych: calm, cooperative, normal affect Course Course Course Narrative: This is a Rapid Medical Examination (RME) performed by Mihaela Quintanilla PA-C in triage. Full HPI, ROS, assessment and treatment plan per primary provider in the Main ED. 33 yo female hx of migraines here for eval of migraine x3d non responsive to sumatriptan and excedrin. assoc nausea without vomiting and photosensitivity. feels like typical migraine. does not follow w/ neurologist. Plan: medication Medications Administered Discontinued Medications Generic Name Dose Route Start Last Admin Trade Name Ramakrishnaq PRN Reason Stop Dose Admin Diphenhydramine HCl 50 mg 03/29/24 21:00 03/29/24 21:19 Diphenhydramine Hcl 50 Mg/Ml Vial IVPUSH 03/29/24 21:01 50 mg ONCE ONE Administration Sodium Chloride 1,000 mls @ 999 mls/hr 03/29/24 21:00 03/29/24 22:29 Ns IVCONT 03/29/24 22:00 Infused .Q1H1M ONE Infusion Ketorolac Tromethamine 30 mg 03/29/24 21:00 03/29/24 21:19 Ketorolac Tromethamine 30 Mg/Ml Vial IVPUSH 03/29/24 21:01 30 mg ONCE ONE Administration Metoclopramide HCl 10 mg 03/29/24 21:00 03/29/24 21:20 Metoclopramide Hcl 10 Mg/2 Ml Vial IVPUSH 03/29/24 21:01 10 mg ONCE ONE Administration Medical Decision Making Medical Decision Making MDM Narrative: patient receiving IV fluids, ketorolac, Benadryl and Reglan - after IV treatment, patient states that she feels much better, headache 2/10, no longer having photophobia. Differential Diagnosis Differential Diagnoses: The differential diagnosis associated with the presentation includes ( tension headache, migraine headache) Admission/Observation Consideration of admission/observation: Escalation of care including admission/observation considered ( given patient's level of discomfort, observation was considered) Critical Care Time Critical Care Time Critical Care Time: Yes Total Critical Care Time: 45 Attestation: I have personally provided critical care time. Time includes review of lab data, radiology results, discussion with consultants, and monitoring for potential decompensation. Intervention performed as documented. Discharge Plan Discharge Clinical Impression: Migraine Patient Disposition: Home, Self-Care Instructions: Migraine Headache (ED) Additional Instructions: Please follow-up with your primary care physician tomorrow. If you have any worsening or new symptoms, please return to the emergency room or call 911 Prescriptions: New ketorolac 10 mg tablet 10 mg PO Q8H PRN (Reason: pain) Qty: 10 0RF Rx Instructions: maximum total duration of 5 days from all oral, intranasal, or parenteral formulations. Do not use this medication with NSAIDs, only Tylenol or sumatriptan if needed metoclopramide HCl [Reglan] 5 mg tablet 5 mg PO . t.i.d. PRN (Reason: nausea and vomiting) Qty: 10 0RF Rx Instructions: take together with ketorolac p.r.n. migraine No Action ypudpyywgw-dxscytnebxngs-jwfc [Fioricet] 50-300-40 mg capsule 1 cap PO TID PRN (Reason: pain) Qty: 10 0RF metoclopramide HCl [Reglan] 5 mg tablet 5 mg PO TID PRN (Reason: nausea and vomiting) Qty: 10 0RF Rx Instructions: Take together with Fioricet p.r.n. migraine headaches cyclobenzaprine 10 mg tablet 10 mg PO TID PRN (Reason: muscle spasm) Qty: 14 0RF mkzrdwwhhk-osacgbsfgzkbi-dasv 50-325-40 mg tablet 1 tab PO Q6H PRN (Reason: pain) Qty: 20 0RF ondansetron 4 mg tablet,disintegrating 4 mg PO Q8H PRN (Reason: nausea and vomiting) Qty: 20 0RF epinephrine [EpiPen] 0.3 mg/0.3 mL auto-injector 0.3 mg IM Q4H PRN (Reason: hypersensitivity reaction) Qty: 2 0RF epinephrine [EpiPen 2-Melvin] 0.3 mg/0.3 mL auto-injector 0.3 mg IM Q4H PRN (Reason: anaphylaxis) Qty: 2 0RF Print Language: Vincentian
[2024-03-29 20:40] VITALS: BP 115/57; PULSE 40; RESP 20; TEMP 36.4; O2SAT 98
[2024-03-29] MEDS: diphenhydrAMINE HCL 50 MG/ML VIAL IVPUSH (21:19)
[2024-03-29] MEDS: Ketorolac Tromethamine 30 MG/ML VIAL IVPUSH (21:19)
[2024-03-29] MEDS: 0.9 % Sodium Chloride 1,000 ML 999 ML IVCONT (21:20)
[2024-03-29] MEDS: Metoclopramide HCl 10 MG/2 ML VIAL IVPUSH (21:20)
--- NOTE | 2024-03-29 21:24 | PC.NURSE ---
20 G IV line established in L AC, patient medicated per AUG. HR 50-65. Dr. Sheehan made aware. Patient placed on director cardiac, normal sinus rhythm noted. Call sadler in patient's reach. Plan of care ongoing.
[2024-03-29 22:37] VITALS: BP 107/69; PULSE 44; RESP 10; TEMP 36.6; O2SAT 99
[2024-03-30 00:16] VITALS: BP 109/63; PULSE 52; RESP 18; TEMP 36.8; O2SAT 97
[2024-03-30 00:40] VITALS: BP 109/63; PULSE 52; RESP 18; TEMP 36.8; O2SAT 97
== END 2024-03-30 00:45 | disposition home or self-care (01) ==
PROVIDERS: Emergency Provider Emergency Medicine; PCP Nurse Practitioner Family
DX: G43.909 Migraine, unspecified, not intractable, without status migrainosus (principal); R11.2 Nausea with vomiting, unspecified; H53.143 Visual discomfort, bilateral; R19.7 Diarrhea, unspecified; Z79.899 Other long term (current) drug therapy
CPT/HCPCS: 96361; 96374; 96375; 99284; 99285; J1200; J1885; J2765

== ENCOUNTER 2024-05-11 11:51 | Emergency (ER) | payer OTHER, SELFPAY ==
[2024-05-11 12:16] VITALS: BP 120/61; PULSE 46; RESP 18; TEMP 36.6; O2SAT 98; BMI 26.2
--- NOTE | 2024-05-11 12:20 | ED.GENADULT ---
HPI - General Adult General Chief complaint: Headache Stated complaint: migraine History of Present Illness HPI narrative: patient left before completion of treatment by ed provider. Related Data Previous Rx's ?Medication ?Instructions ?Recorded juakabujrl-tblrcgktkfmxw-kmxxavxl 1 tab PO Q6H PRN pain #20 tabs 02/16/22 50 mg-325 mg-40 mg tablet cyclobenzaprine 10 mg tablet 10 mg PO TID PRN muscle spasm #14 02/16/22 tabs ondansetron 4 mg disintegrating 4 mg PO Q8H PRN nausea and 02/16/22 tablet vomiting #20 tabs avhqqspqsm-okfsvdapgbrns-vkcvfsdc 1 cap PO TID PRN pain #10 caps 06/28/22 50 mg-300 mg-40 mg capsule (Fioricet) metoclopramide HCl 5 mg tablet 5 mg PO TID PRN nausea and 06/28/22 (Reglan) vomiting #10 tabs epinephrine 0.3 mg/0.3 mL 0.3 mg (0.3 mL) IM Q4H PRN 12/22/23 injection, auto-injector (EpiPen) hypersensitivity reaction #2 ea epinephrine 0.3 mg/0.3 mL 0.3 mg (0.3 mL) IM Q4H PRN 01/18/24 injection, auto-injector (EpiPen anaphylaxis #2 ea 2-Melvin) ketorolac 10 mg tablet 10 mg PO Q8H PRN pain #10 tabs 03/30/24 metoclopramide HCl 5 mg tablet 5 mg PO . t.i.d. PRN nausea and 03/30/24 (Reglan) vomiting #10 tabs Allergies Allergy/AdvReac Type Severity Reaction Status Date / Time birch [BIRCH] Allergy Intermediate UNKNOWN Verified 05/11/24 12:18 cat dander Allergy Intermediate RUNNY NOSE Verified 05/11/24 12:18 pollen extracts [POLLEN] Allergy Intermediate ITCHY EYES Verified 05/11/24 12:18 Penicillins Allergy Hives Verified 05/11/24 12:18 potato Allergy Facial Verified 05/11/24 12:18 Swelling HORTENSIA TREE Allergy Intermediate UNKNOWN Uncoded 05/11/24 12:18 RAW FRUIT Allergy Intermediate UNKNOWN Uncoded 05/11/24 12:18 PMFSH Past Medical History Medical History Migraine Social History Social History Alcohol intake: current Alcohol intake frequency: holidays/special occasions only Patient Tobacco Use Status: Never used Tobacco Advance Directives: No Advance Directives Information Provided: No Physical Exam ED Vital Signs: Vital Signs - 24 hr 05/11/24 12:16 Temperature 98 F Pulse Rate 46 L Respiratory Rate 18 Blood Pressure 120/61 Pulse Oximetry 98 Oxygen Delivery Method Room Air BMI result Body Mass Index 26.2 Course Course Course Narrative: RME: 33 yolld female presents to ED for migraine exacerbation. Patient states no relief with migraine cocktail. Patient to be evaluated in the ED. Zofran given in triage. labs ordered Medications Administered Discontinued Medications Generic Name Dose Route Start Last Admin Trade Name Freq PRN Reason Stop Dose Admin Ondansetron HCl 4 mg 05/11/24 12:18 05/11/24 12:22 Ondansetron Odt 4 Mg Tab.Rapdis TRANSLINGU 05/11/24 12:19 4 mg ONCE ONE Administration Medical Decision Making Lab Data 05/11/24 12:42 05/11/24 12:42 Labs: Lab Results 05/11/24 Range/Units 12:42 WBC 5.2 (4.8-10.8) X10*3/uL RBC 4.03 L (4.20-5.50) X10*6/uL Hgb 12.8 (12.0-16.0) g/dl Hct 37.4 (37.0-47.0) % MCV 92.8 (80.0-98.0) fL MCH 31.8 (27.0-33.0) pg MCHC 34.2 (31.0-35.0) g/dl RDW 12.8 (11.0-16.0) % Plt Count 218 (160-400) X10*3/uL MPV 8.9 L (9.4-12.3) fL Immature Gran % (Auto) 0.2 (0.0-0.4) % Neut % (Auto) 58.8 (45-73) % Lymph % (Auto) 26.3 (20-40) % [place] % (Auto) 11.0 (2-11) % Eos % (Auto) 3.1 (0-4) % Baso % (Auto) 0.6 (0-2) % Lymph # (Auto) 1.4 (1.2-4.9) X10*3/uL [place] # (Auto) 0.6 (0.1-1.2) X10*3/uL Eos # (Auto) 0.2 (0.0-0.4) X10*3/uL Baso # (Auto) 0.0 (0.0-0.2) X10*3/uL Abs Immat Gran (auto) 0.01 (0.00-0.03) X10*3/uL Absolute Neuts (auto) 3.1 (2.0-8.3) x10*3/uL Absolute Nucleated RBC 0.000 (0.0-0.012) X10*3/uL Nucleated RBC % (auto) 0.0 (0.0-0.2) /100WBC Sodium 137 (135-145) mmol/L Potassium 4.3 (3.3-5.1) mmol/L Chloride 108 (96-108) mmol/L Carbon Dioxide 26 (22-29) mmol/L Anion Gap 7 L (12-20) BUN 16 (9-16) mg/dL Creatinine 0.80 (0.5-1.4) mg/dL Estim Creat Clear Calc 104.2 Estimated GFR > 60 Random Glucose 95 (60-115) mg/dL Calcium 9.2 (8.4-10.2) mg/dL Total Bilirubin 0.5 (0.0-1.0) mg/dL AST 33 H (5-31) U/L ALT 31 (0-31) U/L Alkaline Phosphatase 72 (39-117) U/L Total Protein 6.0 L (6.5-8.0) g/dL Albumin 3.8 (3.5-5.0) g/dL Beta HCG, Quant < 2 mIU/mL Influenza Type A (PCR) NEGATIVE (Negative) Influenza Type B (PCR) NEGATIVE (Negative) RSV RNA Qual (PCR) NEGATIVE (Negative) SARS-CoV-2 RNA (RT-PCR) NEGATIVE (Negative) S. pyogenes GrpA EVONNE Negative (Negative) Discharge Plan Discharge Clinical Impression: Headache Patient Disposition: Left W/O Completing Treatment Prescriptions: No Action awjemhsicw-lptyufhqlerfm-jjrn [Fioricet] 50-300-40 mg capsule 1 cap PO TID PRN (Reason: pain) Qty: 10 0RF metoclopramide HCl [Reglan] 5 mg tablet 5 mg PO TID PRN (Reason: nausea and vomiting) Qty: 10 0RF Rx Instructions: Take together with Fioricet p.r.n. migraine headaches cyclobenzaprine 10 mg tablet 10 mg PO TID PRN (Reason: muscle spasm) Qty: 14 0RF ihbkqkdwqf-tlxxqyiblefzu-wjqh 50-325-40 mg tablet 1 tab PO Q6H PRN (Reason: pain) Qty: 20 0RF ondansetron 4 mg tablet,disintegrating 4 mg PO Q8H PRN (Reason: nausea and vomiting) Qty: 20 0RF epinephrine [EpiPen] 0.3 mg/0.3 mL auto-injector 0.3 mg IM Q4H PRN (Reason: hypersensitivity reaction) Qty: 2 0RF ketorolac 10 mg tablet 10 mg PO Q8H PRN (Reason: pain) Qty: 10 0RF Rx Instructions: maximum total duration of 5 days from all oral, intranasal, or parenteral formulations. Do not use this medication with NSAIDs, only Tylenol or sumatriptan if needed metoclopramide HCl [Reglan] 5 mg tablet 5 mg PO . t.i.d. PRN (Reason: nausea and vomiting) Qty: 10 0RF Rx Instructions: take together with ketorolac p.r.n. migraine epinephrine [EpiPen 2-Melvin] 0.3 mg/0.3 mL auto-injector 0.3 mg IM Q4H PRN (Reason: anaphylaxis) Qty: 2 0RF Discharge Date/Time: 05/11/24 21:45
[2024-05-11] MEDS: Ondansetron ODT 4 MG TAB.RAPDIS TRANSLINGU (12:22)
[2024-05-11 12:47] LABS: MANUAL DIFF FLAG NO
[2024-05-11 12:49] LABS: Basophils Percent Auto 0.6 % (0-2); Eosinophils Absolute Auto 0.2 X10*3/uL (0.0-0.4); Eosinophils Percent Auto 3.1 % (0-4); Hematocrit 37.4 % (37.0-47.0); Hemoglobin 12.8 g/dl (12.0-16.0); Imm Gran Abs Auto 0.01 X10*3/uL (0.00-0.03); Imm Gran Pct Auto 0.2 % (0.0-0.4); Lymphocytes Absolute Auto 1.4 X10*3/uL (1.2-4.9); Lymphocytes Percent Auto 26.3 % (20-40); Mean Corpuscular HGB Conc 34.2 g/dl (31.0-35.0); Mean Corpuscular Hemoglobin 31.8 pg (27.0-33.0); Mean Corpuscular Volume 92.8 fL (80.0-98.0); Mean Platelet Volume 8.9 fL (9.4-12.3); Monocytes Absolute Auto 0.6 X10*3/uL (0.1-1.2); Neutrophils Absolute Auto 3.1 x10*3/uL (2.0-8.3); Neutrophils Percent Auto 58.8 % (45-73); Platelet Count 218 X10*3/uL (160-400); Red Blood Count 4.03 X10*6/uL (4.20-5.50); Red Cell Distribution Width 12.8 % (11.0-16.0); White Blood Count 5.2 X10*3/uL (4.8-10.8)
[2024-05-11 13:01] LABS: IDNOW Serial# 08D9AD1C; Strep A Nucleic Acid Negative (Negative)
[2024-05-11 13:25] LABS: Influenza A PCR NEGATIVE (Negative); Influenza B PCR NEGATIVE (Negative); Resp Syncy Virus RNA Qual PCR NEGATIVE (Negative); SARS COV2 PCR INHOUSE NEGATIVE (Negative)
[2024-05-11 13:39] LABS: Alanine Aminotransferase 31 U/L (0-31); Albumin Level 3.8 g/dL (3.5-5.0); Alkaline Phosphatase 72 U/L (39-117); Anion Gap 7 (12-20); Aspartate Amino Transferase 33 U/L (5-31); Bilirubin Total 0.5 mg/dL (0.0-1.0); Blood Urea Nitrogen 16 mg/dL (9-16); Calcium 9.2 mg/dL (8.4-10.2); Carbon Dioxide 26 mmol/L (22-29); Chloride 108 mmol/L (96-108); Creatinine Clr Calc Pharmacy 104.2; Estimated Glomerular Filt Rate > 60; Glucose Random 95 mg/dL (60-115); HCG Quantitative < 2 mIU/mL; Potassium 4.3 mmol/L (3.3-5.1); Sodium 137 mmol/L (135-145)
== END 2024-05-11 21:45 | disposition left against medical advice (07) ==
PROVIDERS: Physician Assistant; Emergency Provider Emergency Medicine; PCP Nurse Practitioner Family
DX: R51.9 Headache, unspecified (principal); Z03.818 Encounter for observation for suspected exposure to other biological agents ruled out
CPT/HCPCS: 0241U; 80053; 84702; 85025; 87651; 99281; 99283

== ENCOUNTER 2024-09-06 11:52 | Emergency (ER) | payer OTHER, SELFPAY ==
[2024-09-06 11:57] VITALS: BP 123/79; PULSE 57; RESP 18; TEMP 36.6; O2SAT 100; BMI 26.2
--- NOTE | 2024-09-06 11:59 | ED_ITS ---
HPI - Headache General Chief Complaint: Headache Stated Complaint: migraine Time Seen by Provider: 09/06/24 12:21 Source: patient Mode of arrival: ambulatory Limitations: no limitations History of Present Illness ED Provider: renu noble np HPI Narrative: patient is a 33-year-old female who presents emergency department for evaluation, endorsing a diffuse headache described as pressure throughout the entirety of her face , associated vomiting yesterday, photophobia. Has a history of migraine headaches, similar to previous, took sumatriptan and Excedrin without relief. Having some associated dizziness. Denies any red flag symptoms including fevers, chills, neck stiffness, malaise, aphasia, weakness, poor coordination, descriptors such as ?the worst headache ever ?or ?thunderclap?, or painful temporal region. Denies vision changes, URI symptoms, chest pain, shortness of breath, numbness or tingling of the extremities. Related Data Previous Rx's ?Medication ?Instructions ?Recorded fffmcuigim-xvwypdcewodab-ocngxkcq 1 tab PO Q6H PRN pain #20 tabs 02/16/22 50 mg-325 mg-40 mg tablet cyclobenzaprine 10 mg tablet 10 mg PO TID PRN muscle spasm #14 02/16/22 tabs ondansetron 4 mg disintegrating 4 mg PO Q8H PRN nausea and 02/16/22 tablet vomiting #20 tabs afynyqlhyg-ardzphnedloeh-nkkishoc 1 cap PO TID PRN pain #10 caps 06/28/22 50 mg-300 mg-40 mg capsule (Fioricet) metoclopramide HCl 5 mg tablet 5 mg PO TID PRN nausea and 06/28/22 (Reglan) vomiting #10 tabs epinephrine 0.3 mg/0.3 mL 0.3 mg (0.3 mL) IM Q4H PRN 12/22/23 injection, auto-injector (EpiPen) hypersensitivity reaction #2 ea epinephrine 0.3 mg/0.3 mL 0.3 mg (0.3 mL) IM Q4H PRN 01/18/24 injection, auto-injector (EpiPen anaphylaxis #2 ea 2-Melvin) ketorolac 10 mg tablet 10 mg PO Q8H PRN pain #10 tabs 03/30/24 metoclopramide HCl 5 mg tablet 5 mg PO . t.i.d. PRN nausea and 03/30/24 (Reglan) vomiting #10 tabs Allergies Allergy/AdvReac Type Severity Reaction Status Date / Time birch [BIRCH] Allergy Intermediate UNKNOWN Verified 09/06/24 12:00 cat dander Allergy Intermediate RUNNY NOSE Verified 09/06/24 12:00 pollen extracts [POLLEN] Allergy Intermediate ITCHY EYES Verified 09/06/24 12:00 Penicillins Allergy Hives Verified 09/06/24 12:00 potato Allergy Facial Verified 09/06/24 12:00 Swelling HORTENSIA TREE Allergy Intermediate UNKNOWN Uncoded 09/06/24 12:00 RAW FRUIT Allergy Intermediate UNKNOWN Uncoded 09/06/24 12:00 Review of Systems Review of Systems: Yes all other systems are reviewed and are negative PMFSH Past Medical History Attestation statement: The following information was validated with the patient. Source: old records reviewed Medical History Migraine Social History Social History Alcohol intake: current Alcohol intake frequency: holidays/special occasions only Patient Tobacco Use Status: Never used Tobacco Advance Directives: No Advance Directives Information Provided: Yes Do you have a plan to hurt others: No Plan Physical Exam Vital Signs: Vital Signs: Last Vital Signs Temp 97.6 F 09/06/24 13:09 Pulse 51 09/06/24 13:09 Resp 16 09/06/24 13:09 BP 112/69 09/06/24 13:09 Pulse Ox 100 09/06/24 13:09 O2 Del Method Room Air 09/06/24 13:09 BMI result Body Mass Index 26.2 Appearance: Alert.?Oriented to person, place and time. No acute distress.?Normal affect. Head: Normocephalic, atraumatic Eyes: Pupils equal, round and reactive to light. EOMI. No nystagmus. No ptosis. No tenderness to palpation over the temporal region. ENT: External auditory canal normal tympanic membrane pearly moe and intact bilaterally. Oropharynx normal. Neck: Normal inspection.? Neck supple. No nuchal rigidity. CVS: Heart sounds normal. Normal heart rate and rhythm.? Pulses normal.?? Respiratory: No respiratory distress.? Lung sounds clear to auscultation bilaterally?? Abdomen: Soft and non-tender. Normoactive bowel sounds. ?? Skin: Skin warm and dry.? Normal skin color.? ?? Extremities: No lower extremity edema.? Neuro: Moves all extremities spontaneously. Sensation intact bilaterally. CN II- XII intact. No focal neuro deficits. Ambulatory with steady gait. Course Reevaluation(s) Reevaluation #1: COVID- 19/RSV /influenza testing is negative. Reports significant improvement in symptoms after receiving Toradol /Reglan/Benadryl.Patient with a history of recurrent and or similar headache, there is no substantial change to typical headache pattern, there are no red flag symptoms, no focal neurological deficits, no high risk comorbidities, at this time feel that patient is stable for discharge home , ambulatory with steady gait Time: 14:37 Medications Administered Discontinued Medications Generic Name Dose Route Start Last Admin Trade Name Freq PRN Reason Stop Dose Admin Diphenhydramine HCl 50 mg 09/06/24 12:33 09/06/24 12:50 Diphenhydramine Hcl 50 Mg/Ml Vial IVPUSH 09/06/24 12:34 50 mg ONCE ONE Administration Sodium Chloride 1,000 mls @ 999 mls/hr 09/06/24 12:45 09/06/24 12:49 Ns IV 09/06/24 13:45 999 mls/hr .Q1H1M NASEEM Administration Ketorolac Tromethamine 15 mg 09/06/24 12:33 09/06/24 12:49 Ketorolac Tromethamine 15 Mg/Ml Vial IVPUSH 09/06/24 12:34 15 mg ONCE ONE Administration Metoclopramide HCl 10 mg 09/06/24 12:33 09/06/24 12:50 Metoclopramide Hcl 10 Mg/2 Ml Vial IVPUSH 09/06/24 12:34 10 mg ONCE ONE Administration Medical Decision Making Medical Decision Making MDM Narrative: patient is a 33-year-old female with past medical history migraine headaches presenting for evaluation of migraine as per HPI. Consistent with prior migraines denies any new attributing symptoms. differential favoring migraine headache, tension headache, viral illness. History without concerning exposures, not exacerbated or worsened by exertion, no red flag symptoms, no vision changes, under the age of 50, no new immunocompromising conditions, no focal neurological abnormalities. No indication for emergent head CT at this time. Unlikely ICH, SDH, no nuchal rigidity to suggest meningitis, not localized in the temporal region to suggest GCA. Differential Diagnosis Differential Diagnoses: The differential diagnosis associated with the presentation includes (SDH, SAH, ICH, WHEEL ALIGNER mass, meningitis, encephalitis, CVA, GCA, migraine, headache) Admission/Observation Consideration of admission/observation: Escalation of care including adm ission/observation considered Lab Data MDM Lab Attestation statement: I reviewed the patient's lab results. Labs: Lab Results 09/06/24 Range/Units 13:17 Influenza Type A (PCR) NEGATIVE (Negative) Influenza Type B (PCR) NEGATIVE (Negative) RSV RNA Qual (PCR) NEGATIVE (Negative) SARS-CoV-2 RNA (RT-PCR) NEGATIVE (Negative) External Record Review External record reviewed: Outpatient record Discharge Plan Discharge Clinical Impression: Migraine Patient Disposition: Home, Self-Care Instructions: Migraine Headache (ED) Additional Instructions: you were evaluated in the emergency department symptoms consistent with your migraine headaches. You received a combination of medications including IV Benadryl, Toradol, Reglan in addition to IV fluids with improvement. COVID- 19/influenza / RSV testing was negative. Follow-up with your primary care doctor. You may return with any new or worsening symptoms or concerns. Prescriptions: No Action rayostajgr-mmekczszisuli-oqrv [Fioricet] 50-300-40 mg capsule 1 cap PO TID PRN (Reason: pain) Qty: 10 0RF metoclopramide HCl [Reglan] 5 mg tablet 5 mg PO TID PRN (Reason: nausea and vomiting) Qty: 10 0RF Rx Instructions: Take together with Fioricet p.r.n. migraine headaches cyclobenzaprine 10 mg tablet 10 mg PO TID PRN (Reason: muscle spasm) Qty: 14 0RF pqqtrtvaia-xqycwzgomvfsb-wovg 50-325-40 mg tablet 1 tab PO Q6H PRN (Reason: pain) Qty: 20 0RF ondansetron 4 mg tablet,disintegrating 4 mg PO Q8H PRN (Reason: nausea and vomiting) Qty: 20 0RF epinephrine [EpiPen] 0.3 mg/0.3 mL auto-injector 0.3 mg IM Q4H PRN (Reason: hypersensitivity reaction) Qty: 2 0RF ketorolac 10 mg tablet 10 mg PO Q8H PRN (Reason: pain) Qty: 10 0RF Rx Instructions: maximum total duration of 5 days from all oral, intranasal, or parenteral formulations. Do not use this medication with NSAIDs, only Tylenol or sumatriptan if needed metoclopramide HCl [Reglan] 5 mg tablet 5 mg PO . t.i.d. PRN (Reason: nausea and vomiting) Qty: 10 0RF Rx Instructions: take together with ketorolac p.r.n. migraine epinephrine [EpiPen 2-Melvin] 0.3 mg/0.3 mL auto-injector 0.3 mg IM Q4H PRN (Reason: anaphylaxis) Qty: 2 0RF Referrals: Neetu Akhtar NP [Primary Care Provider] - Print Language: [place]
[2024-09-06] MEDS: 0.9 % Sodium Chloride 1,000 ML 999 ML IV (12:49)
[2024-09-06] MEDS: Ketorolac Tromethamine 15 MG/ML VIAL IVPUSH (12:49)
[2024-09-06] MEDS: diphenhydrAMINE HCL 50 MG/ML VIAL IVPUSH (12:50)
[2024-09-06] MEDS: Metoclopramide HCl 10 MG/2 ML VIAL IVPUSH (12:50)
[2024-09-06 13:09] VITALS: BP 112/69; PULSE 51; RESP 16; TEMP 36.4; O2SAT 100
[2024-09-06 14:01] LABS: Influenza A PCR NEGATIVE (Negative); Influenza B PCR NEGATIVE (Negative); Resp Syncy Virus RNA Qual PCR NEGATIVE (Negative); SARS COV2 PCR INHOUSE NEGATIVE (Negative)
[2024-09-06 15:00] VITALS: BP 112/69; PULSE 51; RESP 16; TEMP 36.4; O2SAT 100
== END 2024-09-06 15:01 | disposition home or self-care (01) ==
PROVIDERS: Nurse Practitioner Family; Emergency Provider Internal Medicine; PCP Nurse Practitioner Family
DX: G43.909 Migraine, unspecified, not intractable, without status migrainosus (principal); Z03.818 Encounter for observation for suspected exposure to other biological agents ruled out
CPT/HCPCS: 0241U; 96374; 96375; 99284; J1200; J1885; J2765

== ENCOUNTER 2024-12-14 17:24 | Emergency (ER) | payer OTHER, SELFPAY ==
--- NOTE | 2024-12-14 17:26 | ECG_ITS ---
Test Reason : cp Blood Pressure : */* mmHG Vent. Rate : 80 BPM Atrial Rate : 80 BPM P-R Int : 134 ms QRS Dur : 86 ms QT Int : 400 ms P-R-T Axes : 58 62 18 degrees QTcB Int : 461 ms Normal sinus rhythm Normal ECG No previous ECGs available Referred By: Generic ED Physician Electronically Signed By: Diego Cohen
[2024-12-14 17:55] VITALS: BP 132/97; PULSE 76; RESP 16; TEMP 36.8; O2SAT 98; BMI 28.6
--- NOTE | 2024-12-14 17:55 | ED_ITS ---
HPI - Chest Pain General Chief Complaint: Chest Pain Stated Complaint: Chest pain Related Data Previous Rx's ?Medication ?Instructions ?Recorded igjsyajtpl-qafjmnvzazdnt-clughity 1 tab PO Q6H PRN lisa n #20 tabs 02/16/22 50 mg-325 mg-40 mg tablet cyclobenzaprine 10 mg tablet 10 mg PO TID PRN muscle s pasm #14 02/16/22 tabs ondansetron 4 mg disintegrating 4 mg PO Q8H PRN nausea and 02/16/22 tablet vomiting #20 tabs wzbkargmmd-ndckybyphtiou-eyaxavau 1 cap PO TID PRN lisa n #10 caps 06/28/22 50 mg-300 mg-40 mg capsule (Fioricet) metoclopramide HCl 5 mg tablet 5 mg PO TID PRN nausea and 06/28/22 (Reglan) vomiting #10 tabs epinephrine 0.3 mg/0.3 mL 0.3 mg (0.3 mL) IM Q4H PRN 0 12/22/23 injection, auto-injector (EpiPen) hypersensitivity colt ction #2 ea epinephrine 0.3 mg/0.3 mL 0.3 mg (0.3 mL) IM Q4H PRN 0 01/18/24 injection, auto-injector (EpiPen anaphylaxis #2 ea 2-Melvin) ketorolac 10 mg tablet 10 mg PO Q8H PRN pain #10 ta bs 03/30/24 metoclopramide HCl 5 mg tablet 5 mg PO . t.i.d. PRN na usea and 03/30/24 (Reglan) vomiting #10 tabs Allergies Allergy/AdvReac Type Severity Reaction Status Date / Time birch (BIRCH) Allergy Intermediate UNKNOWN Verified 12/14/24 17:57 cat dander Allergy Intermediate RUNNY NOSE Verified 12/14/24 17:57 pollen extracts (POLLEN) Allergy Intermediate ITCHY EYES Verified 12/14/24 17:57 Penicillins Allergy Hives Verified 12/14/24 17:57 potato Allergy Facial Verified 12/14/24 17:57 Swelling HORTENSIA TREE Allergy Intermediate UNKNOWN Uncoded 09/06/24 12:00 RAW FRUIT Allergy Intermediate UNKNOWN Uncoded 09/06/24 12:00 PMFSH Past Medical History Medical History Migraine Social History Social History Alcohol intake: current Alcohol intake frequency: holidays/special occasions only Patient Tobacco Use Status: Never used Tobacco Advance Directives: No Advance Directives Information Provided: No Do you have a plan to hurt others: No Plan Physical Exam 2 Vital Signs: Vital Signs: Last Vital Signs Temp 98.3 F 12/15/24 00:28 Pulse 60 12/15/24 00:28 Resp 16 12/15/24 00:28 BP 126/72 12/15/24 00:28 Pulse Ox 100 12/15/24 00:28 O2 Del Method Room Air 12/15/24 00:28 BMI result Body Mass Index 28.6 Course Course Course Narrative: This is an RME performed by Cheyenne Tello CNP: Additional HPI, ROS, PE not included below will be deferred to primary provider. Patient is a 34-year-old female who presents emergency department for evaluation of intermittent chest pain after using intranasal cocaine earlier today. Sharp in nature, feels it radiate to her neck and her head at times. Reports she has used cocaine in the past infrequently, but not experienced a reaction like this. Plan: Serum labs, ECG Reevaluation(s) Reevaluation #1: LWCT Medical Decision Making Lab Data 12/14/24 18:17 12/14/24 18:17 Labs: Lab Results 12/14/24 12/14/24 Range/Units 18:17 20:57 WBC 6.3 (4.8-10.8) X10*3/uL RBC 4.45 (4.20-5.50) X10*6/uL Hgb 13.9 (12.0-16.0) g/dl Hct 40.1 (37.0-47.0) % MCV 90.1 (80.0-98.0) fL MCH 31.2 (27.0-33.0) pg MCHC 34.7 (31.0-35.0) g/dl RDW 12.1 (11.0-16.0) % Plt Count 279 D (160-400) X10*3/uL MPV 8.7 L (9.4-12.3) fL Immature Gran % (Auto) 0.2 (0.0-0.4) % Neut % (Auto) 65.4 (45-73) % Lymph % (Auto) 24.9 (20-40) % [place] % (Auto) 7.8 (2-11) % Eos % (Auto) 1.1 (0-4) % Baso % (Auto) 0.6 (0-2) % Lymph # (Auto) 1.6 (1.2-4.9) X10*3/uL [place] # (Auto) 0.5 (0.1-1.2) X10*3/uL Eos # (Auto) 0.1 (0.0-0.4) X10*3/uL Baso # (Auto) 0.0 (0.0-0.2) X10*3/uL Abs Immat Gran (auto) 0.01 (0.00-0.03) X10*3/uL Absolute Neuts (auto) 4.1 (2.0-8.3) x10*3/uL Absolute Nucleated RBC 0.000 (0.0-0.012) X10*3/uL Nucleated RBC % (auto) 0.0 (0.0-0.2) /100WBC Sodium 137 (135-145) mmol/L Potassium 4.4 (3.3-5.1) mmol/L Chloride 106 (96-108) mmol/L Carbon Dioxide 22 (22-29) mmol/L Anion Gap 13 (12-20) BUN 17 H (9-16) mg/dL Creatinine 0.73 (0.5-1.4) mg/dL Estim Creat Clear Calc 117.8 Estimated GFR > 60 Random Glucose 97 (60-115) mg/dL Calcium 9.4 (8.4-10.2) mg/dL Magnesium 2.1 (1.6-2.6) mg/dL Total Bilirubin 0.5 (0.0-1.0) mg/dL AST 26 (5-31) U/L ALT 25 (0-31) U/L Alkaline Phosphatase 78 (39-117) U/L Troponin I High Sens < 2.7 < 2.7 (<3.5-17.0) ng/L Total Protein 7.1 (6.5-8.0) g/dL Albumin 4.4 (3.5-5.0) g/dL Discharge Plan Discharge Clinical Impression: Chest pain Patient Disposition: Left W/O Completing Treatment Prescriptions: No Action iqtuvhejoh-ykxdgfatzgrkg-pkmw [Fioricet] 50-300-40 mg capsule 1 cap PO TID PRN (Reason: pain) Qty: 10 0RF metoclopramide HCl [Reglan] 5 mg tablet 5 mg PO TID PRN (Reason: nausea and vomiting) Qty: 10 0RF Rx Instructions: Take together with Fioricet p.r.n. migraine headaches cyclobenzaprine 10 mg tablet 10 mg PO TID PRN (Reason: muscle spasm) Qty: 14 0RF nibgldlxre-tarqncllkcowu-psoh 50-325-40 mg tablet 1 tab PO Q6H PRN (Reason: pain) Qty: 20 0RF ondansetron 4 mg tablet,disintegrating 4 mg PO Q8H PRN (Reason: nausea and vomiting) Qty: 20 0RF epinephrine [EpiPen] 0.3 mg/0.3 mL auto-injector 0.3 mg IM Q4H PRN (Reason: hypersensitivity reaction) Qty: 2 0RF ketorolac 10 mg tablet 10 mg PO Q8H PRN (Reason: pain) Qty: 10 0RF Rx Instructions: maximum total duration of 5 days from all oral, intranasal, or parenteral formulations. Do not use this medication with NSAIDs, only Tylenol or sumatriptan if needed metoclopramide HCl [Reglan] 5 mg tablet 5 mg PO . t.i.d. PRN (Reason: nausea and vomiting) Qty: 10 0RF Rx Instructions: take together with ketorolac p.r.n. migraine epinephrine [EpiPen 2-Melvin] 0.3 mg/0.3 mL auto-injector 0.3 mg IM Q4H PRN (Reason: anaphylaxis) Qty: 2 0RF Discharge Date/Time: 12/15/24 02:57
[2024-12-14 18:40] LABS: MANUAL DIFF FLAG NO
[2024-12-14 18:44] LABS: Hematocrit 40.1 % (37.0-47.0); Hemoglobin 13.9 g/dl (12.0-16.0); Imm Gran Abs Auto 0.01 X10*3/uL (0.00-0.03); Imm Gran Pct Auto 0.2 % (0.0-0.4); Lymphocytes Absolute Auto 1.6 X10*3/uL (1.2-4.9); Mean Corpuscular HGB Conc 34.7 g/dl (31.0-35.0); Mean Corpuscular Hemoglobin 31.2 pg (27.0-33.0); Mean Corpuscular Volume 90.1 fL (80.0-98.0); NRBC Abs Auto 0.000 X10*3/uL (0.0-0.012); NRBC Pct Auto 0.0 /100WBC (0.0-0.2); Platelet Count 279 X10*3/uL (160-400); Red Blood Count 4.45 X10*6/uL (4.20-5.50); White Blood Count 6.3 X10*3/uL (4.8-10.8)
[2024-12-14 18:58] LABS: Alanine Aminotransferase 25 U/L (0-31); Albumin Level 4.4 g/dL (3.5-5.0); Alkaline Phosphatase 78 U/L (39-117); Anion Gap 13 (12-20); Aspartate Amino Transferase 26 U/L (5-31); Blood Urea Nitrogen 17 mg/dL (9-16); Calcium 9.4 mg/dL (8.4-10.2); Carbon Dioxide 22 mmol/L (22-29); Chloride 106 mmol/L (96-108); Creatinine Clr Calc Pharmacy 117.8; Estimated Glomerular Filt Rate > 60; Magnesium 2.1 mg/dL (1.6-2.6); Potassium 4.4 mmol/L (3.3-5.1); Sodium 137 mmol/L (135-145); Total Protein 7.1 g/dL (6.5-8.0)
[2024-12-14 19:06] LABS: Troponin-I High Sensitivity < 2.7 ng/L (<3.5-17.0)
[2024-12-14 21:01] VITALS: BP 124/75; PULSE 70; RESP 18; TEMP 36.1; O2SAT 99
--- NOTE | 2024-12-14 21:05 | PC.NURSE ---
Pt came to triage door, informed t/w she was having CP again. Second trop ordered, VS taken by MARGARITA Baca.
[2024-12-14 21:28] LABS: Troponin-I High Sensitivity < 2.7 ng/L (<3.5-17.0)
[2024-12-15 00:28] VITALS: BP 126/72; PULSE 60; RESP 16; TEMP 36.8; O2SAT 100
--- NOTE | 2024-12-15 02:39 | MHC.EDTECH ---
@ [phone] Patient called for a room, no answer
== END 2024-12-15 02:57 | disposition left against medical advice (07) ==
LOC: HO.ED 12-15 02:51
PROVIDERS: Nurse Practitioner Family; Emergency Provider Emergency Medicine; PCP Nurse Practitioner Family
DX: R07.9 Chest pain, unspecified (principal)
CPT/HCPCS: 36415; 80053; 83735; 84484; 85025; 93005; 99283

== ENCOUNTER → 2024-12-14 17:26 | Outpatient (BNV) | payer OTHER, SELFPAY | PROVIDERS: Emergency Provider Emergency Medicine; PCP Nurse Practitioner Family; Visit Provider Internal Medicine Cardiovascular Disease | DX: R07.89 Other chest pain (principal) | CPT/HCPCS: 93010 ==

== ENCOUNTER 2025-01-17 03:45 | Emergency (ER) | payer OTHER, SELFPAY ==
--- NOTE | 2025-01-17 | ECG_ITS ---
Test Reason : LEANN Blood Pressure : */* mmHG Vent. Rate : 45 BPM Atrial Rate : 45 BPM P-R Int : 146 ms QRS Dur : 96 ms QT Int : 508 ms P-R-T Axes : 11 89 64 degrees QTcB Int : 439 ms Sinus bradycardia Otherwise normal ECG When compared with ECG of 17-Jan-2025 03:45, No significant change was found Referred By: Aden Roa Electronically Signed By: LULA HARMAN
--- NOTE | 2025-01-17 | ECG_ITS ---
Test Reason : CP Blood Pressure : */* mmHG Vent. Rate : 60 BPM Atrial Rate : 60 BPM P-R Int : 140 ms QRS Dur : 84 ms QT Int : 442 ms P-R-T Axes : 23 67 37 degrees QTcB Int : 442 ms Normal sinus rhythm Normal ECG When compared with ECG of 14-Dec-2024 17:27, No significant change was found Referred By: Generic ED Physician Electronically Signed By: LULA HARMAN
--- NOTE | ~2025-01-17 | XR_ITS ---
CLINICAL HISTORY: chest pain Chest radiograph, 1 view Comparison: None Findings: The cardiomediastinal silhouette is not enlarged. Pulmonary vascularity is unremarkable. No focal consolidation or effusion. No pneumothorax. IMPRESSION: No acute cardiopulmonary findings. This document has been electronically signed by: Erwin Mckeon DO on 01/17/2025 09:03:16
[2025-01-17 04:02] VITALS: BP 125/72; PULSE 60; RESP 16; TEMP 37; O2SAT 98; BMI 28.2
[2025-01-17 04:03] LABS: MANUAL DIFF FLAG NO
[2025-01-17 04:25] LABS: Alanine Aminotransferase 18 U/L (0-31); Albumin Level 4.4 g/dL (3.5-5.0); Alkaline Phosphatase 82 U/L (39-117); Anion Gap 12 (12-20); Aspartate Amino Transferase 29 U/L (5-31); Blood Urea Nitrogen 13 mg/dL (9-16); Calcium 8.9 mg/dL (8.4-10.2); Carbon Dioxide 22 mmol/L (22-29); Chloride 103 mmol/L (96-108); Creatinine Clr Calc Pharmacy 112.4; Estimated Glomerular Filt Rate > 60; Magnesium 1.9 mg/dL (1.6-2.6); Potassium 4.2 mmol/L (3.3-5.1); Sodium 133 mmol/L (135-145); Total Protein 6.9 g/dL (6.5-8.0)
[2025-01-17 04:27] LABS: Hematocrit 37.6 % (37.0-47.0); Hemoglobin 13.7 g/dl (12.0-16.0); Imm Gran Abs Auto 0.01 X10*3/uL (0.00-0.03); Imm Gran Pct Auto 0.3 % (0.0-0.4); Lymphocytes Absolute Auto 1.4 X10*3/uL (1.2-4.9); Mean Corpuscular HGB Conc 36.4 g/dl (31.0-35.0); Mean Corpuscular Hemoglobin 32.0 pg (27.0-33.0); Mean Corpuscular Volume 87.9 fL (80.0-98.0); NRBC Abs Auto 0.000 X10*3/uL (0.0-0.012); NRBC Pct Auto 0.0 /100WBC (0.0-0.2); Platelet Count 263 X10*3/uL (160-400); Red Blood Count 4.28 X10*6/uL (4.20-5.50); White Blood Count 3.8 X10*3/uL (4.8-10.8)
[2025-01-17 04:33] LABS: Troponin-I High Sensitivity < 2.7 ng/L (<3.5-17.0)
[2025-01-17 05:45] VITALS: BP 123/77; PULSE 68; RESP 15; TEMP 36.7; O2SAT 100
--- NOTE | 2025-01-17 06:59 | ED_ITS ---
HPI - Chest Pain General Chief Complaint: Chest Pain Stated Complaint: chest tightness, left arm numbness Time Seen by Provider: 01/17/25 06:57 Source: patient History of Present Illness HPI narrative: This is 34 years old the patient presented to the emergency department complaining of chest pain. Pain was in the left precordium radiating to the left upper extremity at this time the pain is gone. She stated that he yesterday she was at a wedding she used alcohol and cocaine. Denies any history of diabetes hyper. Should. MD complaint: chest pain Onset (ago): hour(s) (4) Timing of current episode: now resolved Prior episodes: No Onset: during rest Pain location: substernal Pain radiation: left arm Severity: moderate Quality: aching Relieving factors: nothing Exacerbating factors: nothing Context: recent illness Associated symptoms: nausea Treatment prior to arrival: none Risk Factors Coronary artery disease risk factors: none Thoracic aortic dissection risk factors: none Related Data Previous Rx's ?Medication ?Instructions ?Recorded bmeidbgshl-hrdwpfiodjohy-upgdfxgz 1 tab PO Q6H PRN lisa n #20 tabs 02/16/22 50 mg-325 mg-40 mg tablet cyclobenzaprine 10 mg tablet 10 mg PO TID PRN muscle s pasm #14 02/16/22 tabs ondansetron 4 mg disintegrating 4 mg PO Q8H PRN nausea and 02/16/22 tablet vomiting #20 tabs jwmcqpzass-aswavhdqyztit-krikzwra 1 cap PO TID PRN lisa n #10 caps 06/28/22 50 mg-300 mg-40 mg capsule (Fioricet) metoclopramide HCl 5 mg tablet 5 mg PO TID PRN nausea and 06/28/22 (Reglan) vomiting #10 tabs epinephrine 0.3 mg/0.3 mL 0.3 mg (0.3 mL) IM Q4H PRN 0 12/22/23 injection, auto-injector (EpiPen) hypersensitivity colt ction #2 ea epinephrine 0.3 mg/0.3 mL 0.3 mg (0.3 mL) IM Q4H PRN 0 01/18/24 injection, auto-injector (EpiPen anaphylaxis #2 ea 2-Melvin) ketorolac 10 mg tablet 10 mg PO Q8H PRN pain #10 ta bs 10/21/24 metoclopramide HCl 5 mg tablet 5 mg PO . t.i.d. PRN na usea and 03/30/24 (Reglan) vomiting #10 tabs Allergies Allergy/AdvReac Type Severity Reaction Status Date / Time birch (BIRCH) Allergy Intermediate UNKNOWN Verified 01/17/25 04:02 cat dander Allergy Intermediate RUNNY NOSE Verified 01/17/25 04:02 pollen extracts (POLLEN) Allergy Intermediate ITCHY EYES Verified 01/17/25 04:02 Penicillins Allergy Hives Verified 01/17/25 04:02 potato Allergy Facial Verified 01/17/25 04:02 Swelling HORTENSIA TREE Allergy Intermediate UNKNOWN Uncoded 01/17/25 04:02 RAW FRUIT Allergy Intermediate UNKNOWN Uncoded 01/17/25 04:02 Review of Systems 2 Constitutional: Constitutional: Reports no additional constitutional complaints ENT: Reports system reviewed and no additional complaints, except as documented Cardiovascular: Cardiovascular: Reports as per HPI [facility] Past Medical History [facility] Narrative: Denies any major medical problems Medical History Migraine Social History Social History Alcohol intake: current Alcohol intake frequency: holidays/special occasions only Patient Tobacco Use Status: Never used Tobacco Smoked in Last 30 Days: No Use of substances other than those prescribed or required for medical reasons: Yes Substance Use Type: Crack/Cocaine Substance Use Frequency: Monthly Advance Directives: No Advance Directives Information Provided: Yes Patient : No Physical Exam 2 Exam: Exam: Patient looks well not toxic appearing no distress Vital Signs: Vital Signs: Last Vital Signs Temp 98.3 F 01/17/25 07:05 Pulse 51 01/17/25 08:22 Resp 14 01/17/25 08:22 BP 110/70 01/17/25 08:22 Pulse Ox 99 01/17/25 08:22 O2 Del Method Room Air 01/17/25 08:22 BMI result Body Mass Index 28.2 Const: General: cooperative Nutritional Appearance: average body habitus Orientation/consciousness: patient oriented x3 HEENT: Head: Yes normal to inspection Ears: hearing grossly normal bilaterally General nose exam: Normal external nose present Face and sinus: Yes normal facial exam Mouth: Normal oral and palatal mucosa present Teeth and gingiva: dentition normal Neck: Neck: Yes normal visual inspection Chest: Chest palpation & inspection: normal inspection of the chest Resp: Effort & Inspection: normal respiratory effort Auscultation: clear to auscultation bilaterally Cardio: Jugular venous distension: no JVD Rate: regular rate GI: Inspection: Yes normal to inspection Palpation (GI): Soft to palpation Auscultation: normal bowel sounds Skin: General skin exam: no rashes or lesions noted Neuro: General: patient oriented x3 Course Reevaluation(s) Reevaluation #1: On re-examination the patient is feeling much better asymptomatic delta trop is flat chest x-ray negative anticipate discharge Medical Decision Making Medical Decision Making [facility] Narrative: 34 years old presented with chest pain after use of alcohol and cocaine most likely chest pain related to cocaine we will check labs EKG Differential Diagnosis Differential Diagnoses: The differential diagnosis associated with the presentation includes Patient is here with chest pain we will obtain EKG I sensitive troponin chest x- ray differential diagnosis acute coronary syndrome/atypical chest pain/cocaine related chest pain/pneumothorax Admission/Observation Consideration of admission/observation: Escalation of care including admission/observation considered Lab Data [facility] Lab Attestation statement: I reviewed the patient's lab results. 01/17/25 03:58 01/17/25 03:58 Labs: Lab Results 01/17/25 01/17/25 Range/Units 03:58 07:03 WBC 3.8 L (4.8-10.8) X10*3/uL RBC 4.28 (4.20-5.50) X10*6/uL Hgb 13.7 (12.0-16.0) g/dl Hct 37.6 (37.0-47.0) % MCV 87.9 (80.0-98.0) fL MCH 32.0 (27.0-33.0) pg MCHC 36.4 H (31.0-35.0) g/dl RDW 11.8 (11.0-16.0) % Plt Count 263 (160-400) X10*3/uL MPV 9.0 L (9.4-12.3) fL Immature Gran % (Auto) 0.3 (0.0-0.4) % Neut % (Auto) 45.6 (45-73) % Lymph % (Auto) 36.6 (20-40) % [place] % (Auto) 12.8 H (2-11) % Eos % (Auto) 3.4 (0-4) % Baso % (Auto) 1.3 (0-2) % Lymph # (Auto) 1.4 (1.2-4.9) X10*3/uL [place] # (Auto) 0.5 (0.1-1.2) X10*3/uL Eos # (Auto) 0.1 (0.0-0.4) X10*3/uL Baso # (Auto) 0.1 (0.0-0.2) X10*3/uL Abs Immat Gran (auto) 0.01 (0.00-0.03) X10*3/uL Absolute Neuts (auto) 1.8 L (2.0-8.3) x10*3/uL Absolute Nucleated RBC 0.000 (0.0-0.012) X10*3/uL Nucleated RBC % (auto) 0.0 (0.0-0.2) /100WBC Sodium 133 L (135-145) mmol/L Potassium 4.2 (3.3-5.1) mmol/L Chloride 103 (96-108) mmol/L Carbon Dioxide 22 (22-29) mmol/L Anion Gap 12 (12-20) BUN 13 (9-16) mg/dL Creatinine 0.76 (0.5-1.4) mg/dL Estim Creat Clear Calc 112.4 Estimated GFR > 60 Random Glucose 92 (60-115) mg/dL Calcium 8.9 (8.4-10.2) mg/dL Magnesium 1.9 (1.6-2.6) mg/dL Total Bilirubin 0.7 (0.0-1.0) mg/dL AST 29 (5-31) U/L ALT 18 (0-31) U/L Alkaline Phosphatase 82 (39-117) U/L Troponin I High Sens < 2.7 < 2.7 (<3.5-17.0) ng/L Total Protein 6.9 (6.5-8.0) g/dL Albumin 4.4 (3.5-5.0) g/dL Independent Interpretation I performed an independent interpretation of an: EKG and Plain X-Ray (No acute disease) Interpretation: EKG was reviewed interpreted by me as sinus rhythm no ST-T changes normal EKG Radiology Impression Discussion of test interpretation with radiology: I have reviewed the radiologist's reading. Radiologist Impression: CLINICAL HISTORY: chest pain Chest radiograph, 1 view Comparison: None Findings: The cardiomediastinal silhouette is not enlarged. Pulmonary vascularity is unremarkable. No focal consolidation or effusion. No pneumothorax. IMPRESSION: No acute cardiopulmonary findings. This document has been electronically signed by: Erwin Mckeon DO on 01/17/2025 09:03:16 Dictated By: Erwin Mckeon MD Signed By: <Electronically signed by Erwin Mckeon MD in OV> 01/17/25 0904 Discharge Plan Discharge Clinical Impression: Substance abuse Chest pain Qualifiers: Chest pain type: unspecified Qualified Code(s): R07.9 - Chest pain, unspecified Patient Disposition: Home, Self-Care Instructions: Chest Pain (DC) Prescriptions: No Action nssimapgzc-oqioolqleqfeu-iayw [Fioricet] 50-300-40 mg capsule 1 cap PO TID PRN (Reason: pain) Qty: 10 0RF metoclopramide HCl [Reglan] 5 mg tablet 5 mg PO TID PRN (Reason: nausea and vomiting) Qty: 10 0RF Rx Instructions: Take together with Fioricet p.r.n. migraine headaches cyclobenzaprine 10 mg tablet 10 mg PO TID PRN (Reason: muscle spasm) Qty: 14 0RF sfxrialqvf-ofanhnvoixovt-yqtk 50-325-40 mg tablet 1 tab PO Q6H PRN (Reason: pain) Qty: 20 0RF ondansetron 4 mg tablet,disintegrating 4 mg PO Q8H PRN (Reason: nausea and vomiting) Qty: 20 0RF epinephrine [EpiPen] 0.3 mg/0.3 mL auto-injector 0.3 mg IM Q4H PRN (Reason: hypersensitivity reaction) Qty: 2 0RF ketorolac 10 mg tablet 10 mg PO Q8H PRN (Reason: pain) Qty: 10 0RF Rx Instructions: maximum total duration of 5 days from all oral, intranasal, or parenteral formulations. Do not use this medication with NSAIDs, only Tylenol or sumatriptan if needed metoclopramide HCl [Reglan] 5 mg tablet 5 mg PO . t.i.d. PRN (Reason: nausea and vomiting) Qty: 10 0RF Rx Instructions: take together with ketorolac p.r.n. migraine epinephrine [EpiPen 2-Melvin] 0.3 mg/0.3 mL auto-injector 0.3 mg IM Q4H PRN (Reason: anaphylaxis) Qty: 2 0RF Print Language: Bengali
[2025-01-17 07:05] VITALS: BP 111/65; PULSE 78; RESP 16; TEMP 36.8; O2SAT 99
[2025-01-17 07:37] LABS: Troponin-I High Sensitivity < 2.7 ng/L (<3.5-17.0)
[2025-01-17 08:22] VITALS: BP 110/70; PULSE 51; RESP 14; O2SAT 99
--- NOTE | 2025-01-17 08:34 | PC.NURSE ---
Assumed care of pt at 0700. Pt resting in bed quietly, a/ox3, respirations even and unlabored, no increased wob/sob noted, appears in no distress. Continuous O2 prob on pt- maintaining O2 sat >92% on RA, denies CP/palpitations at this time. engine monitor shows sinus baudilio, HR 40s. MD Roa made aware. Pt arousable to verbal stimuli- HR increased to 70s while talking with this RN. axle polisher at bedside for repeat EKG d/t sinus baudilio. Pt verbalizes no complaints to this RN. Call sadler within reach, all needs met at this time.
[2025-01-17 09:39] VITALS: BP 105/65; PULSE 60; RESP 19; TEMP 36.7; O2SAT 99
[2025-01-17 10:10] VITALS: BP 105/65; PULSE 60; RESP 19; TEMP 36.7; O2SAT 99
== END 2025-01-17 10:11 | disposition home or self-care (01) ==
PROVIDERS: Emergency Provider Emergency Medicine
DX: R07.89 Other chest pain (principal); R00.1 Bradycardia, unspecified; R20.0 Anesthesia of skin; R11.0 Nausea; F14.10 Cocaine abuse, uncomplicated
CPT/HCPCS: 36415; 71045; 80053; 83735; 84484; 85025; 93005; 99283; 99285

== ENCOUNTER → 2025-01-17 03:45 | Outpatient (BNV) | payer OTHER, SELFPAY | PROVIDERS: Emergency Provider Emergency Medicine; Visit Provider Internal Medicine | DX: R07.9 Chest pain, unspecified (principal); R00.1 Bradycardia, unspecified | CPT/HCPCS: 93010 ==

== ENCOUNTER → 2025-01-17 06:57 | Outpatient (BNV) | payer OTHER, SELFPAY | PROVIDERS: Emergency Provider Emergency Medicine; Visit Provider Radiology Diagnostic Radiology | DX: R07.9 Chest pain, unspecified (principal) | CPT/HCPCS: 71045 ==

== ENCOUNTER 2025-03-03 10:03 | Emergency (ER) | payer OTHER, SELFPAY ==
--- OUTSIDE RECORDS SUMMARY | 2024-01-21 10:40 | XMS_ITS ---
Author Organization [facility] Address [address], [place] [id number] Care Team Providers Care Vending Technician Name Role Phone RIOS MCCALLUM Unavailable [phone] Allergies Allergen (clinical drug ingredient) Drug/Non Drug Allergy documented on EMR Reaction Allergy Type Onset Date Status rian trees (uncoded) unsure Allergy Active birch trees (uncoded) unsure Allergy Active penicillin (uncoded) itching, swelling Allergy Active potatoes (uncoded) itching, sneezing, hives, SOB, wheezing, coughing, swelling Allergy Active raw fruits/stone fruits (uncoded) itching, sneezing, swelling of mouth Allergy Active seasonal (ragweed/Pollen) (uncoded) itching, sneezing Allergy Active Results Component Value Reference Range Notes IMMUNOGLOBULIN E Reviewed date:02/05/2024 08:49:06 AM Interpretation: Normal Performing Lab:[facility], [facility], [address] [place] [address], [phone] Rodrigue Crockett M.D. Notes/Report: Received Date: FASTING:YES FASTING: YES IMMUNOGLOBULIN E 25 <HB=897 kU/L Potato (f35), IgE Reviewed date:02/05/2024 08:49:06 AM Interpretation: Normal Performing Lab:[facility], [facility], [address] [place] [address], [phone] Rodrigue Crockett M.D. Notes/Report: Received Date: FASTING:YES FASTING: YES POTATO (F35) IGE <0.10 CLASS 0 SED RATE BY MODIFIED WESTERG LUIS M Reviewed date:02/05/2024 08:49:06 AM Interpretation: Normal Performing Lab:[facility], [facility], [address] [place], [phone] Rodrigue Crockett M.D. Notes/Report: Received Date: FASTING:YES FASTING: YES SED RATE BY MODIFIED WESTERGREN 6 < OR = 20 mm/h HS-CRP Reviewed date:02/05/2024 08:49:06 AM Interpretation: Normal Performing Lab:[facility], [facility], [address] [place] [address], [phone] Rodrigue Crockett M.D. Notes/Report: Received Date: FASTING:YES FASTING: YES HS CRP <0.2 Reference Range Optimal <1.0 Jellaayush PS et al. Endocr Pract.2017;23(Suppl 2):1-87. For ages >17 Years: hs-CRP mg/L Risk According to AHA/CDC Guidelines <1.0 Lower relative cardiovascular risk. 1.0-3.0 Average relative cardiovascular risk. 3.1-10.0 Higher relative cardiovascular risk. Consider retesting in 1 to 2 weeks to exclude a benign transient elevation in the baseline CRP value secondary to infection or inflammation. >10.0 Persistent elevation, upon retesting, may be associated with infection and inflammation. Ursula TA, Jabari GA, Eugenio RW, et al. Markers of inflammation and cardiovascular disease: application to clinical and public health practice: A statement for healthcare professionals from the Centers for Disease Control and Prevention and the [place] [employer]. Circulation 2003; 107(3): 499-511. DNA(ds) AB, CRITHIDIA IFA W/ RF Reviewed date:02/05/2024 08:49:06 AM Interpretation: Normal Performing Lab:[facility], [facility], [address], [place], [phone] Alexei Lara M.D.,PhD Notes/Report: Received Date: FASTING:YES FASTING: YES DNA AB (DS) CRITHIDIA,IFA Negative Negative SWEET POTATO (F54) IGE Reviewed date:02/05/2024 08:49:06 AM Interpretation: Normal Performing Lab:[facility], [address] [place] [address], [phone] Rodirgue Crockett M.D. Notes/Report: Received Date: FASTING:YES FASTING: YES SWEET POTATO (F54) IGE <0.10 CLASS 0 Problems Problem Type SNOMED Code ICD Code Onset Dates Problem Status W/U Status Risk Notes Problem Urticaria (19566041) Urticaria, unspecified (L50.9) Active confirmed Problem Allergic rhinitis (52635410) Allergic rhinitis, unspecified (J30.9) Active confirmed Problem Chronic allergic conjunctivitis (33076760) Other chronic allergic conjunctivitis (H10.45) Active confirmed Problem Food allergy (984116493) Allergy to other foods (Z91.018) Active confirmed Vital Signs Temperature 37.3 C 01/21/2024 Blood pressure systolic 135 mm Hg 01/21/20 24 Blood pressure diastolic 91 mm Hg 024 Heart Rate 56 /min 01/21/2024 BMI 29.72 kg/m2 01/21/2024 Height 169 cm 01/21/2024 Weight 84.9 kg 01/21/2024 Encounters Encounter Location Date Provider Diagnosis [facility] [address] [phone] 01/21/2024 RIOS MCCALLUM Urticaria, unspecifi ed L50.9 ; Allergic rhinitis, unspecified J30.9 ; Other chronic allergic conjunctivitis H10.45 and Allergy to other foods Z91.018 Assessments Encounter Date Diagnosis (ICD Code) Assessment Notes Treatment Notes Treatment Clinical Notes Section Notes 01/21/2024 Urticaria, unspecified (ICD-10 - L50.9) 01/21/2024 Allergic rhinitis, unspecified (ICD-10 - J30.9) 01/21/2024 Other chronic allergic conjunctivitis (ICD-10 - H10.45) 01/21/2024 Allergy to other foods (ICD-10 - Z91.018) 01/21/2024 Other 1. Cetirizine 10mg twice per day as needed together with 2. Fexofenadine 180mg (Emily or generic) once to twice per day 3. Laboratory testing for potato allergy 4. Epipen as instructed - call 911 after use 5. Potato avoidance 6. Follow-up after laboratory testing Plan Of Treatment Treatment Notes Assessment Notes Other 1. Cetirizine 10mg twice per day as needed together with 2. Fexofenadine 180mg (Emily or generic) once to twice per day 3. Laboratory testing for potato allergy 4. Epipen as instructed - call 911 after use 5. Potato avoidance 6. Follow-up after laboratory testing Pending Test Test Name Order Date RIKY IFA, W/REFL TO TITER/PATTERN/CASCADE 01/21/2024 Progress Notes * Bonny JOHNSDOB: [birth year] (34 yo F)Acc No.[id number]:01/21/2024 Progress Notes Patient: Bonny JEAN Provider: Krishna Mccallum MD, PhD :1990 A ge:33 Y S ex:Female Date:01/21/2024 Phone: Address:[address] [place], [place] [phone] Subjective: * Chief Complaints: * * HPI: I solation Precautions: Respiratory Illness Screening 1 . Is fever present / reported? N o 2 . Are respiratory illness symptom(s) present / reported? N o 3 . Are other symptom(s) present / reported??No 5 . Has there been reported travel to a High Risk respiratory illness region? N o 7 . Did travel or close contact (if applicable) occur within 14 days of symptom onset? N o * Medical History: * Allergies: a sh trees: unsure, birch trees: unsure, raw fruits/stone fruits: itching, sneezing, swelling of mouth, potatoes: itching, sneezing, hives, SOB, wheezing, coughing, swelling, penicillin: itching, swelling, seasonal (ragweed/Pollen): itching, sneezing. Objective: * Vitals: B P:135/91mm Hg, HR:56/min, Temp:37.3C, Ht-cm: 169 cm, Wt-k.9 kg, BMI:29.72Index. Assessment: * Assessment: 1. A llergic rhinitis, unspecified - J30.9 2 . U rticaria, unspecified - L50.9 (Primary) 3 . O ther chronic allergic conjunctivitis - H10.45 ?4. A llergy to other foods - Z91.018 Plan: * Treatment: * Labs: * L ab: SWEET POTATO (F54) IGE (Collection Date & Time - 01/23/2024 09:19 AM) L ab: IMMUNOGLOBULIN E (Collection Date & Time - 01/23/2024 09:19 AM) L ab: Potato (f35), IgE (Collection Date & Time - 01/23/2024 09:19 AM) L ab: HS-CRP (Collection Date & Time - 01/23/2024 09:19 AM) L ab: DNA(ds) AB, CRITHIDIA IFA W/RF (Collection Date & Time - 01/23/2024 09:19 AM) L ab: SED RATE BY MODIFIED WESTERGREN (Collection Date & Time - 01/23/2024 09:19 AM) * * Electronic signature of RAYNE MCCALLUM MD, PhD on 03/03/2025 at 12:48 PM EDT Sign off status: Pending * Provider: Krishna Mccallum MD, PhD Date: 0 01/21/2024 Generated for Printi ng/Faxing/eTransmitting on: 0 03/03/2025 12:48 PM EDT History and Physical Notes * HPI (History of Present Illness) Category Sub-Category Detail Notes Category Not es Isolation Precautions Respiratory Illnes s Screening 1. Is fever present / reported?: No 2. Are respiratory illness symptom(s) pr esent / reported?: No 3. Are other symptom(s) present / report ed?: No 5. Has there been reported t ravel to a High Risk respiratory illness region?: No 7. Did travel or close conta ct (if applicable) occur within 14 days of symptom onset?: No
[2025-03-03 10:05] VITALS: BP 133/88; PULSE 79; RESP 20; TEMP 37; O2SAT 99; BMI 29.5
--- NOTE | 2025-03-03 10:06 | ED_ITS ---
HPI - General Adult General Chief complaint: Headache Stated complaint: migraine for 3 days, OTC arent working Time Seen by Provider: 03/03/25 10:58 Source: patient Mode of arrival: ambulatory Limitations: no limitations History of Present Illness ED Provider: DR. Castle HPI narrative: 34-year-old female history of migraine presented with headache migraine for the past 3 days patient confirmed this is similar to her prior headaches in the past, patient confirm that the headache was gradual onset and slowly got worse, no LOC, no neck pain, no neck stiffness, no thunderclap pattern. No history of SAH, no family history of SAH or cerebral aneurysm. Related Data Previous Rx's ?Medication ?Instructions ?Recorded shjyfemyao-aaslyyjnotpuh-ovsiaedj 1 tab PO Q6H PRN lisa n #20 tabs 02/16/22 50 mg-325 mg-40 mg tablet cyclobenzaprine 10 mg tablet 10 mg PO TID PRN muscle s pasm #14 02/16/22 tabs ondansetron 4 mg disintegrating 4 mg PO Q8H PRN nausea and 02/16/22 tablet vomiting #20 tabs ufjdbcvvnv-fzjvhwgonotxr-cuwfafyq 1 cap PO TID PRN lisa n #10 caps 06/28/22 50 mg-300 mg-40 mg capsule (Fioricet) metoclopramide HCl 5 mg tablet 5 mg PO TID PRN nausea and 06/28/22 (Reglan) vomiting #10 tabs epinephrine 0.3 mg/0.3 mL 0.3 mg (0.3 mL) IM Q4H PRN 0 12/22/23 injection, auto-injector (EpiPen) hypersensitivity colt ction #2 ea epinephrine 0.3 mg/0.3 mL 0.3 mg (0.3 mL) IM Q4H PRN 0 01/18/24 injection, auto-injector (EpiPen anaphylaxis #2 ea 2-Melvin) ketorolac 10 mg tablet 10 mg PO Q8H PRN pain #10 ta bs 03/30/24 metoclopramide HCl 5 mg tablet 5 mg PO . t.i.d. PRN na usea and 03/30/24 (Reglan) vomiting #10 tabs Allergies Allergy/AdvReac Type Severity Reaction Status Date / Time birch (BIRCH) Allergy Intermediate UNKNOWN Verified 03/03/25 10:08 cat dander Allergy Intermediate RUNNY NOSE Verified 03/03/25 10:08 pollen extracts (POLLEN) Allergy Intermediate ITCHY EYES Verified 03/03/25 10:08 Penicillins Allergy Hives Verified 03/03/25 10:08 potato Allergy Facial Verified 03/03/25 10:08 Swelling HORTENSIA TREE Allergy Intermediate UNKNOWN Uncoded 03/03/25 10:08 RAW FRUIT Allergy Intermediate UNKNOWN Uncoded 03/03/25 10:08 Review of Systems 2 Review of Systems: All other systems are reviewed and are negative Constitutional: Reports as per HPI and Reports no additional constitutional complaints Eyes: Reports as per HPI and Reports no additional eye complaints Reports system reviewed and no additional complaints, except as documented Cardiovascular: Reports as per HPI and Reports no additional cardiovascular complaints Respiratory: Reports as per HPI and Reports no additional respiratory complaints Gastrointestinal: Reports as per HPI and Reports no additional gastrointestinal complaints Genitourinary: Reports no additional female genitourinary complaints Musculoskeletal: Reports no additional musculoskeletal complaints Skin/Breast: Reports system reviewed and no additional complaints, except as docu Psychiatric: Reports no additional psychiatric complaints Endocrine: Reports no additional endocrine complaints Hematologic/Lymphatic: Reports no additional hematologic/lymphatic complaints Allergic/Immunologic: Reports no additional allergic/immunologic complaints Reports system reviewed and no additional complaints, except as documented and Reports Abnormal speech present [facility] Past Medical History Medical History Migraine Social History Social History Alcohol intake: current Alcohol intake frequency: holidays/special occasions only Patient Tobacco Use Status: Never used Tobacco Smoked in Last 30 Days: No Use of substances other than those prescribed or required for medical reasons: No Substance Use Type: Crack/Cocaine Advance Directives: No Advance Directives Information Provided: Yes Physical Exam ED Vital Signs: Vital Signs - 24 hr 03/03/25 10:05 03/03/25 12:14 Temperature 98.6 F 98.5 F Pulse Rate 79 58 Respiratory Rate 20 16 Blood Pressure 133/88 124/75 Pulse Oximetry 99 98 Oxygen Delivery Method Room Air Room Air BMI result Body Mass Index 29.5 Vital signs have been reviewed and appear to be correct. Blood pressure elevated. Heart rate normal. Respiratory rate normal. Temperature normal. Oxygen saturation normal. Appearance: Alert. Oriented X3. No acute distress. Head: Normal external exam. Normocephalic. Atraumatic. No Layton signs noted. No raccoon eyes noted Eyes: PERRLA. EOMI. Conjunctiva and sclera normal. Eyelids normal. ENT: TM's Normal. Pharynx normal. Uvula midline. Moist mucous membranes. No trismus noted. No drooling noted. No muffled voice noted. Neck: Normal inspection. Neck supple. FROM. No adenopathy. Thyroid Normal. No meningeal signs. No neck mass noted. CVS: Normal heart rate and rhythm. Heart sound normal. No murmurs noted. Pulses normal throughout. Respiratory: No respiratory distress. Painless inspiration. Breath sounds normal. No wheezes/rales/rhonchi noted. Chest nontender. No accessory muscle usage noted or decreased air movement noted. Abdomen: Soft and nontender. Bowel sounds normal in all 4 quadrants. No distention noted. No organomegaly noted. No visible injury noted. Back: No CVA tenderness. Full range of motion noted. Skin: Skin warm and dry. Normal skin color. Normal skin turgor. No rashes/lesions/lacerations noted. Extremities: No lower extremity edema. Extremities exhibit normal range of motion. Extremities nontender. Neuro: Mental status: Normal attention, orientation, memory, and affect. Cranial nerves: Pupils are equal, round and reactive to light, EOMI, visual hernandez are fall, face is symmetric, facial sensations are normal. Motor examination normal muscle tone, strength to 4 extremities. DTR are +2, planter's are flexor. Sensory exam; normal coordination, no ataxia, gait stable. Cerebellar exam: Xclsxy-fq-aagm and rddt-xj-ihbr is normal. Extrapyramidal system: No tremors, no rigidity with normal facial expressions. Pronator drift not present Course Course Course Narrative: This is a rapid medical exam performed by Homer Jones NP: Additional HPI, ROS, PE not included below will be deferred to primary provider. Patient is a 34y/o F with pmhx migraines presenting to the ED with c/o migraine for past 3 days with associated nausea and vomiting, photophobia. Regular medications not helping. Reevaluation(s) Reevaluation #1: Presented with migraine headache patient with longstanding history of migraine, patient received Tylenol, Benadryl, Reglan, and IV fluids patient now feels much better headache is almost gone, no neck stiffness or neck pain, no fever, no chills, now there is no photophobia. Time: 13:35 Medications Administered Discontinued Medications Generic Name Dose Route Start Last Admin Trade Name Tee PRN Reason Stop Dose Admin Diphenhydramine HCl 25 mg 03/03/25 11:08 03/03/25 11:31 Diphenhydramine Hcl 50 Mg/Ml Vial IVPUSH 03/03/25 11:09 25 mg ONCE ONE Administration Lactated Ringer's 1,000 mls @ 999 mls/hr 03/03/25 11:15 03/03/25 12:36 Lr IV 03/03/25 12:15 Infused .Q1H1M NASEEM Infusion Acetaminophen 1,000 mg in 100 mls @ 400 mls/hr 03/03/25 11:08 03/03/25 11:50 Ofirmev IV 03/03/25 11:22 Infused ONCE ONE Infusion Metoclopramide HCl 10 mg 03/03/25 11:08 03/03/25 11:32 Metoclopramide Hcl 10 Mg/2 Ml Vial IVPUSH 03/03/25 11:09 10 mg ONCE ONE Administration Medical Decision Making Differential Diagnosis Differential Diagnoses: The differential diagnosis associated with the presentation includes (Tension headache, migraine headache, electrolyte derangement, severe anemia, meningitis.) Admission/Observation Consideration of admission/observation: Escalation of care including admission/observation considered Lab Data MDM Lab Attestation statement: I reviewed the patient's lab results. 03/03/25 10:32 03/03/25 10:32 Labs: Lab Results 03/03/25 03/03/25 Range/Units 10:32 10:56 WBC 4.6 L (4.8-10.8) X10*3/uL RBC 4.30 (4.20-5.50) X10*6/uL Hgb 13.7 (12.0-16.0) g/dl Hct 38.9 (37.0-47.0) % MCV 90.5 (80.0-98.0) fL MCH 31.9 (27.0-33.0) pg MCHC 35.2 H (31.0-35.0) g/dl RDW 12.4 (11.0-16.0) % Plt Count 276 (160-400) X10*3/uL MPV 8.8 L (9.4-12.3) fL Immature Gran % (Auto) 0.2 (0.0-0.4) % Neut % (Auto) 44.8 L (45-73) % Lymph % (Auto) 34.1 (20-40) % [place] % (Auto) 14.1 H (2-11) % Eos % (Auto) 5.9 H (0-4) % Baso % (Auto) 0.9 (0-2) % Lymph # (Auto) 1.6 (1.2-4.9) X10*3/uL [place] # (Auto) 0.7 (0.1-1.2) X10*3/uL Eos # (Auto) 0.3 (0.0-0.4) X10*3/uL Baso # (Auto) 0.0 (0.0-0.2) X10*3/uL Abs Immat Gran (auto) 0.01 (0.00-0.03) X10*3/uL Absolute Neuts (auto) 2.1 (2.0-8.3) x10*3/uL Absolute Nucleated RBC 0.000 (0.0-0.012) X10*3/uL Nucleated RBC % (auto) 0.0 (0.0-0.2) /100WBC Sodium 137 (135-145) mmol/L Potassium 4.2 (3.3-5.1) mmol/L Chloride 108 (96-108) mmol/L Carbon Dioxide 23 (22-29) mmol/L Anion Gap 10 L (12-20) BUN 7 L (9-16) mg/dL Creatinine 0.78 (0.5-1.4) mg/dL Estim Creat Clear Calc 108.2 Estimated GFR > 60 Random Glucose 98 (60-115) mg/dL Calcium 9.1 (8.4-10.2) mg/dL Magnesium 2.0 (1.6-2.6) mg/dL Total Bilirubin 0.8 (0.0-1.0) mg/dL AST 31 (5-31) U/L ALT 35 H (0-31) U/L Alkaline Phosphatase 85 (39-117) U/L Total Protein 7.2 (6.5-8.0) g/dL Albumin 4.3 (3.5-5.0) g/dL Urine Test NEGATIVE (NEGATIVE) Discharge Plan Discharge Clinical Impression: Migraine Patient Disposition: Home, Self-Care Instructions: Migraine Headache (ED) Prescriptions: No Action nsrtiktwwd-xvkceywkyrpke-esif [Fioricet] 50-300-40 mg capsule 1 cap PO TID PRN (Reason: pain) Qty: 10 0RF metoclopramide HCl [Reglan] 5 mg tablet 5 mg PO TID PRN (Reason: nausea and vomiting) Qty: 10 0RF Rx Instructions: Take together with Fioricet p.r.n. migraine headaches cyclobenzaprine 10 mg tablet 10 mg PO TID PRN (Reason: muscle spasm) Qty: 14 0RF scegmrnaiz-gowkdragducgm-siow 50-325-40 mg tablet 1 tab PO Q6H PRN (Reason: pain) Qty: 20 0RF ondansetron 4 mg tablet,disintegrating 4 mg PO Q8H PRN (Reason: nausea and vomiting) Qty: 20 0RF epinephrine [EpiPen] 0.3 mg/0.3 mL auto-injector 0.3 mg IM Q4H PRN (Reason: hypersensitivity reaction) Qty: 2 0RF ketorolac 10 mg tablet 10 mg PO Q8H PRN (Reason: pain) Qty: 10 0RF Rx Instructions: maximum total duration of 5 days from all oral, intranasal, or parenteral formulations. Do not use this medication with NSAIDs, only Tylenol or sumatriptan if needed metoclopramide HCl [Reglan] 5 mg tablet 5 mg PO . t.i.d. PRN (Reason: nausea and vomiting) Qty: 10 0RF Rx Instructions: take together with ketorolac p.r.n. migraine epinephrine [EpiPen 2-Melvin] 0.3 mg/0.3 mL auto-injector 0.3 mg IM Q4H PRN (Reason: anaphylaxis) Qty: 2 0RF Print Language: Slovenian
[2025-03-03 10:36] LABS: MANUAL DIFF FLAG NO
[2025-03-03 10:37] LABS: Hematocrit 38.9 % (37.0-47.0); Hemoglobin 13.7 g/dl (12.0-16.0); Imm Gran Abs Auto 0.01 X10*3/uL (0.00-0.03); Imm Gran Pct Auto 0.2 % (0.0-0.4); Lymphocytes Absolute Auto 1.6 X10*3/uL (1.2-4.9); Mean Corpuscular HGB Conc 35.2 g/dl (31.0-35.0); Mean Corpuscular Hemoglobin 31.9 pg (27.0-33.0); Mean Corpuscular Volume 90.5 fL (80.0-98.0); NRBC Abs Auto 0.000 X10*3/uL (0.0-0.012); NRBC Pct Auto 0.0 /100WBC (0.0-0.2); Platelet Count 276 X10*3/uL (160-400); Red Blood Count 4.30 X10*6/uL (4.20-5.50); White Blood Count 4.6 X10*3/uL (4.8-10.8)
[2025-03-03 10:51] LABS: Alanine Aminotransferase 35 U/L (0-31); Albumin Level 4.3 g/dL (3.5-5.0); Alkaline Phosphatase 85 U/L (39-117); Anion Gap 10 (12-20); Aspartate Amino Transferase 31 U/L (5-31); Blood Urea Nitrogen 7 mg/dL (9-16); Calcium 9.1 mg/dL (8.4-10.2); Carbon Dioxide 23 mmol/L (22-29); Chloride 108 mmol/L (96-108); Creatinine Clr Calc Pharmacy 108.2; Estimated Glomerular Filt Rate > 60; Magnesium 2.0 mg/dL (1.6-2.6); Potassium 4.2 mmol/L (3.3-5.1); Sodium 137 mmol/L (135-145); Total Protein 7.2 g/dL (6.5-8.0)
[2025-03-03 11:06] LABS: UPreg QC Valid YES
[2025-03-03] MEDS: Lactated Ringers 1,000 ML 999 ML IV (11:35)
[2025-03-03 12:14] VITALS: BP 124/75; PULSE 58; RESP 16; TEMP 36.9; O2SAT 98
--- OUTSIDE RECORDS SUMMARY | 2025-03-03 12:48 | XMS_ITS | Patient Health Record ---
Author Organization [facility] Address [address], [place] [id number] Care Team Providers Care Manager Biostatistics Name Role Phone RIOS MCCALLUM Unavailable [phone] Allergies Allergen (clinical drug ingredient) Drug/Non Drug [...] seasonal (ragweed/Pollen) (uncoded) itching, sneezing Allergy Active Reason For Referral No Information Problems Problem Type SNOMED Code ICD Code Onset Dates Problem Status W/U Status Risk Notes Problem Chronic allergic conjunctivitis (76496421) Other chronic allergic conjunctivitis (H10.45) Active confirmed Problem Allergic rhinitis (16928019) Allergic rhinitis, unspecified (J30.9) Active confirmed Problem Urticaria (06248876) Urticaria, unspecified (L50.9) Active confirmed Problem Food allergy (098398371) Allergy to other foods (Z91.018) Active confirmed Plan Of Treatment Pending Test Test Name Order Date RIKY IFA, W/REFL TO TITER/PATTERN/CASCADE 01/21/2024 Insurance Providers Payer Name Payer Address Payer Phone Subscriber Number Group Number Insured Name Patient Relationship to Insured Coverage Start Date Coverage End Date [facility] [address] [facility] [place] [phone] [phone] [id number] Bonny Do Self - patient is the insured
[2025-03-03 13:48] VITALS: BP 124/75; PULSE 58; RESP 16; TEMP 36.9; O2SAT 98
== END 2025-03-03 13:49 | disposition home or self-care (01) ==
PROVIDERS: Registered Nurse Emergency; Emergency Provider Emergency Medicine; PCP Nurse Practitioner Family
DX: G43.909 Migraine, unspecified, not intractable, without status migrainosus (principal); R11.0 Nausea; Z79.899 Other long term (current) drug therapy
CPT/HCPCS: 36415; 80053; 81025; 83735; 85025; 96361; 96374; 96375; 99284; J0131; J1200; J2765; J7120

== ENCOUNTER 2025-03-18 17:54 | Emergency (ER) | payer OTHER, SELFPAY ==
[2025-03-18 18:00] VITALS: BP 141/76; PULSE 68; RESP 20; TEMP 36; O2SAT 98; BMI 28.7
--- NOTE | 2025-03-18 18:01 | ED_ITS ---
HPI - General Adult General Chief complaint: Headache Stated complaint: migraine Time Seen by Provider: 03/18/25 20:49 Source: patient and old records reviewed Mode of arrival: ambulatory Limitations: no limitations History of Present Illness ED Provider: ISABELLA HPI narrative: 34 yo female with PMH of migraines here with c/o worsening migraine since yesterday occurred at rest - has gotten worse did not respond to multiple migraine medications. Has nausea and photophobia. She admits school and stress are likely her new triggers. She has no fevers, no trauma to the head. Has had to have more ED visits recently for her migraines. complaint: migraine Onset (ago): day(s) (1) Location: head Radiation: non-radiation Severity: severe Quality: other (throbbing) Pain Consistency: constant Relieving factors: none Exacerbating factors: other Associated symptoms: headaches and nausea/vomiting Treatments prior to arrival: other Related Data Previous Rx's ?Medication ?Instructions ?Recorded [id number]-xkrtxerlizhkm-[id number] 1 tab PO Q6H PRN lisa n #20 tabs 02/16/22 50 mg-325 mg-40 mg tablet cyclobenzaprine 10 mg tablet 10 mg PO TID PRN muscle s pasm #14 02/16/22 tabs ondansetron 4 mg disintegrating 4 mg PO Q8H PRN nausea and 02/16/22 tablet vomiting #20 tabs tphwxjxziy-tatcxozqbyexr-ksbepwnh 1 cap PO TID PRN lisa n #10 caps 06/28/22 50 mg-300 mg-40 mg capsule (Fioricet) metoclopramide HCl 5 mg tablet 5 mg PO TID PRN nausea and 06/28/22 (Reglan) vomiting #10 tabs epinephrine 0.3 mg/0.3 mL 0.3 mg (0.3 mL) IM Q4H PRN 0 12/22/23 injection, auto-injector (EpiPen) hypersensitivity colt ction #2 ea epinephrine 0.3 mg/0.3 mL 0.3 mg (0.3 mL) IM Q4H PRN 0 01/18/24 injection, auto-injector (EpiPen anaphylaxis #2 ea 2-Melvin) ketorolac 10 mg tablet 10 mg PO Q8H PRN pain #10 ta bs 03/30/24 metoclopramide HCl 5 mg tablet 5 mg PO . t.i.d. PRN na usea and 03/30/24 (Reglan) vomiting #10 tabs Allergies Allergy/AdvReac Type Severity Reaction Status Date / Time birch (BIRCH) Allergy Intermediate UNKNOWN Verified 03/18/25 18:03 cat dander Allergy Intermediate RUNNY NOSE Verified 03/18/25 18:03 pollen extracts (POLLEN) Allergy Intermediate ITCHY EYES Verified 03/18/25 18:03 Penicillins Allergy Hives Verified 03/18/25 18:03 potato Allergy Facial Verified 03/18/25 18:03 Swelling HORTENSIA TREE Allergy Intermediate UNKNOWN Uncoded 03/03/25 10:08 RAW FRUIT Allergy Intermediate UNKNOWN Uncoded 03/03/25 10:08 Review of Systems Review of Systems: Constitutional : No Fever, No Chills, No Fatigue ENT/Mouth : No sore throat, No Rhinorrhea Eyes: No Eye Pain, No Swelling, No Redness Cardiovascular : No Chest Pain, No SOB, No Dyspnea on Exertion Respiratory : No Cough, No Sputum Gastrointestinal : pos Nausea, No Vomiting, No Diarrhea, No abdominal Pain Genitourinary : No Dysuria, No Urinary Frequency, No Hematuria, Musculoskeletal : No joint pain, No Myalgias, No Joint Swelling Skin : No Skin Lesions, No rash Neuro : No Weakness, No Numbness, No Dizziness, positive Headache All other systems reviewed and are negative [facility] Past Medical History Attestation statement: The following information was validated with the patient. Source: old records reviewed Medical History Migraine Social History Social History Alcohol intake: current Alcohol intake frequency: holidays/special occasions only Patient Tobacco Use Status: Never used Tobacco Substance Use Type: Crack/Cocaine Advance Directives: No Advance Directives Information Provided: Yes Do you have a plan to hurt others: No Plan Physical Exam ED Vital Signs: Vital Signs - 24 hr 03/18/25 18:00 Temperature 96.8 F Pulse Rate 68 Respiratory Rate 20 Blood Pressure 141/76 H Pulse Oximetry 98 Oxygen Delivery Method Room Air BMI result Body Mass Index 28.7 Appearance: Alert. Oriented X3. No acute distress. photophobia Eyes: Pupils equal, round and reactive to light. ENT: Pharynx normal. Neck: Normal inspection. Neck supple. CVS: Normal heart rate and rhythm. Pulses normal. Respiratory: No respiratory distress. Breath sounds normal. Abdomen: Soft and nontender. Skin: Skin warm and dry. Normal skin color. Extremities: No lower extremity edema. Neuro: Oriented X 3. No motor deficit. No sensory deficit. Course Course Course Narrative: This is a rapid medical exam performed by Homer Jones NP: Additional HPI, ROS, PE not included below will be deferred to primary provider. Patient is a 34y/o F with history of migraines presenting with complaint of migraine for the past few days. Taking meds at home without relief. +photophobia and nausea. Medications Administered Discontinued Medications Generic Name Dose Route Start Last Admin Trade Name Freq PRN Reason Stop Dose Admin Diphenhydramine HCl 25 mg 03/18/25 21:03 03/18/25 21:44 Diphenhydramine Hcl 50 Mg/Ml Vial IVPUSH 03/18/25 21:04 25 mg ONCE ONE Administration Ketorolac Tromethamine 15 mg 03/18/25 21:03 03/18/25 21:44 Ketorolac Tromethamine 15 Mg/Ml Vial IVPUSH 03/18/25 21:04 15 mg ONCE ONE Administration Metoclopramide HCl 10 mg 03/18/25 21:03 03/18/25 21:44 Metoclopramide Hcl 10 Mg/2 Ml Vial IVPUSH 03/18/25 21:04 10 mg ONCE ONE Administration Medical Decision Making Medical Decision Making MDM Narrative: 34 yo female not on thinners here with typical migraine gradual onset but this one won't respond to her migraine medications - given gradual onset and lack of fevers doubt [employer] infection, has worsened throughout the day doubt ICH. Will provide migraine cocktail and DC once improved. Differential Diagnosis Differential Diagnoses: The differential diagnosis associated with the presentation includes migraine, status migrainosus Admission/Observation Consideration of admission/observation: Escalation of care including admission/observation considered feels much better stable for DC External Record Review External record reviewed: Outpatient record Prescription Management I considered prescription management with: Other Discharge Plan Discharge Clinical Impression: Migraine Qualifiers: Migraine type: unspecified Status migrainosus presence: without status migrainosus Intractability: not intractable Qualified Code(s): G43.909 - Migraine, unspecified, not intractable, without status migrainosus Patient Disposition: Home, Self-Care Instructions: Migraine Headache (ED) Additional Instructions: return for worsening pain, fevers, numbness, weakness, confusion or any other concerns rest and stay hydrated follow up with your doctor for medication management Prescriptions: No Action [id number]-rlrwpqhkiroyx-eoxj [Fioricet] 50-300-40 mg capsule 1 cap PO TID PRN (Reason: pain) Qty: 10 0RF metoclopramide HCl [Reglan] 5 mg tablet 5 mg PO TID PRN (Reason: nausea and vomiting) Qty: 10 0RF Rx Instructions: Take together with Fioricet p.r.n. migraine headaches cyclobenzaprine 10 mg tablet 10 mg PO TID PRN (Reason: muscle spasm) Qty: 14 0RF [id number]-rylzwrhzxcswc-rrtd 50-325-40 mg tablet 1 tab PO Q6H PRN (Reason: pain) Qty: 20 0RF ondansetron 4 mg tablet,disintegrating 4 mg PO Q8H PRN (Reason: nausea and vomiting) Qty: 20 0RF epinephrine [EpiPen] 0.3 mg/0.3 mL auto-injector 0.3 mg IM Q4H PRN (Reason: hypersensitivity reaction) Qty: 2 0RF ketorolac 10 mg tablet 10 mg PO Q8H PRN (Reason: pain) Qty: 10 0RF Rx Instructions: maximum total duration of 5 days from all oral, intranasal, or parenteral formulations. Do not use this medication with NSAIDs, only Tylenol or sumatriptan if needed metoclopramide HCl [Reglan] 5 mg tablet 5 mg PO . t.i.d. PRN (Reason: nausea and vomiting) Qty: 10 0RF Rx Instructions: take together with ketorolac p.r.n. migraine epinephrine [EpiPen 2-Melvin] 0.3 mg/0.3 mL auto-injector 0.3 mg IM Q4H PRN (Reason: anaphylaxis) Qty: 2 0RF Stand Alone Forms: Work/School Release Print Language: Czech
[2025-03-18 22:49] VITALS: BP 127/79; PULSE 58; RESP 18; O2SAT 98
[2025-03-18 23:18] VITALS: BP 127/79; PULSE 58; RESP 18; TEMP -17.7; TEMP 0; O2SAT 98
== END 2025-03-18 23:19 | disposition home or self-care (01) ==
PROVIDERS: Emergency Provider Emergency Medicine
DX: G43.909 Migraine, unspecified, not intractable, without status migrainosus (principal)
CPT/HCPCS: 96374; 96375; 99284; J1200; J1885; J2765